=== PATIENT | male | born 1990 | race African-American/Black ===

== ENCOUNTER 2016-07-07 08:43 | Inpatient (IN) | payer OTHER ==
[2016-07-07] VITALS (13 sets, daily range): BP systolic 151; BP diastolic 58; PULSE 71–120; RESP 22; TEMP 98.1; O2SAT 99–100
[~2016-07-07 08:43] MED LIST: IBUP600 PO
[2016-07-07] MEDS ORDERED: MIDAZOLAM HCL 5 MG/ML VIAL (1 ML) ONE (08:45)
[2016-07-07] MEDS ORDERED: LORazepam 2 MG/ML VIAL ONE (08:45)
[2016-07-07] MEDS ORDERED: PROPOFOL 1000 MG/100 ML INJ 100 ML ONE ×3 (08:52→12:17)
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
[2016-07-07] MEDS ORDERED: IOHEXOL 350 MG/ML 10 ML VIAL (for RAD DIAG) IV ONE ×2 (09:26→21:37)
[2016-07-07 09:33] LABS: I-STAT POTASSIUM 3.6 MMOL/L (3.5-4.9); I-STAT SODIUM 147 MMOL/L (138-146)
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
[2016-07-07] MEDS ORDERED: MANNITOL INJ 50 ML ONE (09:47)
[2016-07-07] MEDS ORDERED: METOPROLOL TARTRATE 5 MG/5 ML VIAL ONE (09:48)
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
[2016-07-07 10:09] LABS: APTT (PATIENT) 24.6 SEC (24.3-30.1); PROTHROMBIN TIME - PATIENT 11.5 SEC (9.8-11.6)
[2016-07-07] MEDS ORDERED: ROCURONIUM INJ 50 MG/5 ML VIAL ONE (10:46)
[2016-07-07] MEDS ORDERED: CISATRACURIUM BESYLATE 20 MG/10 ML VIAL IVP ONE (11:00)
[2016-07-07 11:02] LABS: AMPHETAMINE, URINE NEG (NEG); BARBITURATES, URINE NEG (NEG); COCAINE, URINE NEG (NEG)
[2016-07-07] MEDS: SODIUM CHLOR 0.9% 1000 ML INJ 1,000 ML IV SCH ×2 (11:13→18:34)
[2016-07-07] MEDS ORDERED: MISCELLANEOUS NURSING INFORMATION XX SCH (11:15)
[2016-07-07] MEDS ORDERED: POTASSIUM PHOSPHATE INJ 30 MMOL in SODIUM CHLOR 0.9% 250 ML INJ 250 ML IV PRN (11:15)
[2016-07-07] MEDS ORDERED: POTASSIUM CHLOR 40 MEQ PREMIX 100 ML IV PRN ×3 (11:15→17:30)
[2016-07-07] MEDS ORDERED: SODIUM CHLORIDE 0.9% FLUSH 5 ML FLUSH IVF PRN (11:15)
[2016-07-07] MEDS ORDERED: PANTOPRAZOLE SODIUM 40 MG VIAL IVP SCH (11:15)
[2016-07-07] MEDS ORDERED: MAGNESIUM SULFATE INJ 4 GM in SODIUM CHLORIDE 0.9% INJ 92 ML IV PRN ×2 (11:15→17:30)
[2016-07-07] MEDS ORDERED: POTASSIUM CHLOR 20 MEQ PREMIX 100 ML IV PRN ×4 (11:15→17:30)
[2016-07-07] MEDS ORDERED: POTASSIUM CL 40 MEQ/30 ML LIQ UDC PO/TUBE PRN ×4 (11:15→17:30)
[2016-07-07] MEDS ORDERED: CHLORHEXIDINE GLUCONATE 2 % 1 PACK (2 CLOTHS) TOP PRN (11:15)
[2016-07-07] MEDS ORDERED: ONDANSETRON HCL 4 MG/2 ML VIAL IV PRN (11:15)
[2016-07-07] MEDS ORDERED: SODIUM PHOSPHATE INJ 30 MMOL in SODIUM CHLOR 0.9% 250 ML INJ 240 ML IV PRN (11:15)
[2016-07-07] MEDS ORDERED: MAGNESIUM SULFATE INJ 2 GM in SODIUM CHLORIDE 0.9% INJ 96 ML IV PRN ×2 (11:15→17:30)
[2016-07-07] MEDS ORDERED: MAGNESIUM OXIDE 400 MG TAB PO PRN ×2 (11:15→17:30)
[2016-07-07] MEDS ORDERED: POTASSIUM PHOSPHATE MONOBASIC 500 MG TAB PO PRN ×2 (11:15→17:30)
[2016-07-07] MEDS ORDERED: POTASSIUM PHOSPHATE MONOBASIC 500 MG TAB PO/TUBE PRN ×2 (11:15→17:30)
[2016-07-07] MEDS ORDERED: ENALAPRILAT 1.25 MG/ML VIAL IV PRN (11:15)
[2016-07-07] MEDS ORDERED: METOPROLOL TARTRATE 5 MG/5 ML VIAL IV PUSH ONE (11:30)
[2016-07-07] MEDS ORDERED: MIDAZOLAM 100 MG/NS 100 ML DRIP Premix IV SCH (11:30)
[2016-07-07] MEDS ORDERED: MANNITOL 12.5 GM/50 ML VIAL IV SCH (11:30)
[2016-07-07 11:36] LABS: BASOPHIL # 0.1 TH/MM3 (0-0.2); BASOPHIL % 0.8 % (0.0-2.0); EOSINOPHIL # 0.3 TH/MM3 (0-0.4); EOSINOPHIL % 3.2 % (0.0-4.0); HEMATOCRIT 49.5 % (39.0-51.0); LYMPH % 56.2 % (9.0-44.0); MEAN CELL VOLUME 93.5 FL (80.0-100.0); MEAN CORPUSCULAR HEMOGLOBIN 29.7 PG (27.0-34.0); MEAN CORPUSCULAR HGB CONC 31.7 % (32.0-36.0); MONO % 6.2 % (0.0-8.0); NEUT % 33.6 % (16.0-70.0); PLATELET COUNT 200 TH/MM3 (150-450); RED BLOOD COUNT 5.29 MIL/MM3 (4.50-5.90); RED CELL DISTRIBUTION WIDTH 13.6 % (11.6-17.2)
[2016-07-07 11:37] LABS: HEMO FLAGS AUTO DIFF
[2016-07-07 11:40] LABS: BANDS 1 % (0-6); EOSINOPHILS 5 % (0-4); METAMYELOCYTES 1 % (0-1); NEUTROPHIL # MANUAL DIFF 3.9 TH/MM3 (1.8-7.7); POLYS (SEG NEUTROPHILS) 41 % (16-70); WBC DIFF SAMPLE 100
[2016-07-07 11:41] LABS: PLATELET ESTIMATE SMEAR NORMAL (NORMAL); PLATELET MORPHOLOGY NORMAL (NORMAL); SCAN/DIFF FINAL DIFF MANUAL
[2016-07-07] MEDS ORDERED: SODIUM CHLORIDE 0.9% FLUSH 5 ML FLUSH IV FLUSH PRN (11:45)
[2016-07-07] MEDS ORDERED: cloNIDine HCL 0.3 MG/24 HR PATCH TD SCH (12:00)
[2016-07-07] MEDS: PANTOPRAZOLE SODIUM 40 MG VIAL IVP SCH ×2 (12:00→14:56)
[2016-07-07 12:12] LABS: BLOOD GAS BASE EXCESS -2.6 mmol/L (-2-2); BLOOD GAS CARBOXYHEMOGLOBIN 1.2 % (0-4); BLOOD GAS HCO3 22 mmol/L (22-26); BLOOD GAS METHEMOGLOBIN 0.9 % (0-2); BLOOD GAS O2 HGB SATURATION 97 % (90-100); BLOOD GAS OXYGEN CONTENT 22.7 Vol % (12.0-20.0); BLOOD GAS PCO2 43 mmHg (38-42); BLOOD GAS PO2 251 mmHg (61-120); BLOOD GAS TOTAL HGB 16.2 G/DL (12.0-16.0); TEMP CORR TO 98.6
[2016-07-07 12:13] LABS: CRITICAL VALUE NO; DRAW SITE RT RADIAL; FIO2 50 %; NUMBER OF ARTERIAL PUNCTURES 1; OXYGEN DEVICE VENTILATOR; STAT NO; ULNAR PULSE PRESENT; VENT SETTINGS PRVC/AC
--- NOTE | 2016-07-07 13:17 | PD.PROCEDR ---
Procedure Note Procedure The patient suffered a laceration to the RIGHT side of his scalp that required repair. It is 5 cm in length. After evaluating the area, the wound was copiously irrigated with normal saline. The area of the laceration was prepped with Betadine and sterilely draped. The laceration was infiltrated with 1% Lidocaine with Epinephrine. The wound was explored for foreign body, tendon injury, or neurovascular injury. The wound was then cleansed and irrigated a second time. Trying to maintain a sterile field and using a sterile staple gun, 3 chata were placed to approximate the wound edges. The patient tolerated the procedure well and no complications occurred. A sterile 4x4 dressing can be applied if it should drain. Recommendation: Daily wound checks and staple removal in 7-8 days. LACERATION LOCATION: RIGHT side of scalp LENGTH: 5 cm NUMBER OF CHATA: 3 Trupti Miles Jul 07, 2016 13:17
[2016-07-07] MEDS ORDERED: fentaNYL DRIP 250 ML IV SCH (13:30)
[2016-07-07] MEDS ORDERED: PROPOFOL 1000 MG/100 ML INJ 100 ML IV SCH (13:30)
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
[2016-07-07] MEDS: CISATRACURIUM INJ 100 MG in SODIUM CHLOR 0.9% 250 ML INJ 240 ML IV SCH ×4 (14:24→22:37)
[2016-07-07] MEDS: PROPOFOL 1000 MG/100 ML INJ 100 ML IV SCH ×5 (14:25→23:56)
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
[2016-07-07] MEDS: 3% SALINE INJ 500 ML IV SCH (16:15)
[2016-07-07] MEDS: RESP: ALBUTEROL 2.5 MG/IPRATROPIUM 0.5 MG NEB (SCH) INH ×2 (16:19→20:52)
[2016-07-07 16:51] LABS: CKMB 5.8 NG/ML (0.5-3.6)
[2016-07-07 16:55] LABS: BLOOD GAS VENOUS BASE EXCESS -1.5 mmol/L (-2-2); BLOOD GAS VENOUS O2 CONTENT 16.3 Vol % (9.0-17.0); BLOOD GAS VENOUS O2 HGB SAT 74 % (70-76); BLOOD GAS VENOUS PCO2 33 mmHg (44-48); BLOOD GAS VENOUS PO2 40 mmHg (35-40); BLOOD GAS VENOUS pH 7.44 (7.360-7.400); TEMP CORR TO 98.6
[2016-07-07 16:56] LABS: BLOOD GAS VENOUS HCO3 23 mmol/L (22-26); CRITICAL VALUE NO; FIO2 50 %; OXYGEN DEVICE VENTILATOR; STAT NO; VENT SETTINGS PRVC/AC
[2016-07-07 16:57] LABS: DRAW SITE CENTRAL LINE
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
[2016-07-07 17:31] LABS: BLOOD GAS BASE EXCESS -3.4 mmol/L (-2-2); BLOOD GAS CARBOXYHEMOGLOBIN 1.2 % (0-4); BLOOD GAS HCO3 19 mmol/L (22-26); BLOOD GAS O2 HGB SATURATION 96 % (90-100); BLOOD GAS OXYGEN CONTENT 20.8 Vol % (12.0-20.0); BLOOD GAS PCO2 23 mmHg (38-42); BLOOD GAS PO2 100 mmHg (61-120); BLOOD GAS TOTAL HGB 15.4 G/DL (12.0-16.0); CRITICAL VALUE YES; OXYGEN DEVICE VENTILATOR; TEMP CORR TO 98.6
[2016-07-07 17:32] LABS: FIO2 50 %; VENT SETTINGS PRVC/AC
[2016-07-07 17:33] LABS: DRAW SITE ART LINE; STAT NO
[2016-07-07] MEDS ORDERED: SODIUM CHLORIDE 23.4% INJ 240 MEQ in SYRINGE/BAG 1 EA IV ONE ×2 (18:00→23:00)
[2016-07-07] MEDS: MAGNESIUM SULFATE 1 GM PREMIX 100 ML IV SCH ×2 (18:33→20:31)
[2016-07-07] MEDS: levETIRAcetam 1000 MG INJ 100 ML IV SCH (18:33)
[2016-07-07] MEDS: hydrALAZINE HCL 20 MG/ML VIAL IV PRN (18:33)
[2016-07-07] MEDS: MIDAZOLAM 100 MG/ML INJ 100 ML IV SCH ×2 (18:34→20:32)
[2016-07-07] MEDS: fentaNYL DRIP 250 ML IV SCH ×2 (18:34→20:31)
[2016-07-07] MEDS ORDERED: EPINEPHrine HCL (1:10,000) 1 MG/10 ML SYRINGE ONE (18:59)
[2016-07-07] MEDS ORDERED: LIDOCAINE HCL 2% 100 MG/5 ML SYRINGE ONE (18:59)
[2016-07-07] MEDS ORDERED: ATROPINE SULFATE 1 MG/10 ML SYRINGE ONE (18:59)
[2016-07-07] MEDS ORDERED: NOREPINEPHRINE 4 MG/4 ML AMP ONE (19:45)
[2016-07-07] MEDS ORDERED: CHLORHEXIDINE 0.12% (ORAL KIT) 15 ML CUP MT SCH (20:00)
[2016-07-07] MEDS: MAGNESIUM HYDROXIDE SUSP 30 ML CUP PO SCH (20:31)
[2016-07-07] MEDS: CHLORHEXIDINE 0.12% (ORAL KIT) 15 ML CUP MT SCH (20:31)
[2016-07-07] MEDS: SODIUM CHLORIDE 0.9% FLUSH 5 ML FLUSH IV FLUSH SCH (20:32)
[2016-07-07] MEDS ORDERED: DOCUSATE SODIUM 100 MG CAP PO SCH (21:00)
[2016-07-07 21:41] LABS: CKMB 13.8 NG/ML (0.5-3.6)
--- NOTE | 2016-07-07 21:48 | RADRPT ---
EXAM DATE/TIME: 07/07/2016 21:18 [facility] COMPARISON: No previous studies available for comparison. INDICATIONS : Evaluate known intracranial hemorrhage; fluctuating intracranial pressure. IV CONTRAST: 76 cc Omnipaque 350 (iohexol) IV ; Cumulative dose for multiple exams. RADIATION DOSE: 28.90 CTDIvol (mGy) ; Combined studies MEDICAL HISTORY : Cardiovascular disease. Hypertension. Intracranial hemorrhage. SURGICAL HISTORY : None. ENCOUNTER: Initial ACUITY: 1 day PAIN SCALE: Non-responsive LOCATION: cranial TECHNIQUE: Volumetric scanning was performed using a multi-row detector CT scanner. The data was post processed with a variety of visualization algorithms including full volume maximum intensity projection, multi -planar sliding thin slab reformation, curved planar reformation, and surface rendering techniques. Using automated exposure control and adjustment of the mA and/or kV according to patient size, radiat ion dose was kept as low as reasonably achievable to obtain optimal diagnostic quality images. FINDINGS: There is excellent visualization of the major intracranial arteries out to the second-order branch ve ssels. There is no evidence for aneurysm, vessel truncation or stenosis, and no evidence for vascula r malformation. CONCLUSION: Negative CTA of the head. Significant areas of spasm are seen. Delroy Grimaldo MD on July 07, 2016 at 21:45 Board Certified Radiologist. This report was verified electronically.
--- NOTE | 2016-07-07 21:51 | RADRPT ---
EXAM DATE/TIME: 07/07/2016 21:18 [facility] COMPARISON: CT BRAIN W/O CONTRAST, July 07, 2016, 9:11. INDICATIONS : Evaluate known intracranial hemorrhage; fluctuating intracranial pressure. RADIATION DOSE: 50.67 CTDIvol (mGy) MEDICAL HISTORY : Hypertension. Cardiovascular disease ICH SURGICAL HISTORY : None. ENCOUNTER: Initial ACUITY: 1 day PAIN SCALE: Non-responsive LOCATION: Cranial TECHNIQUE: Multiple contiguous axial images were obtained of the head. Using automated exposure control and adjustment of the mA and/or kV according to patient size, radiation dose was kept as low as reasonably achievable to obtain optimal diagnostic quality images. FINDINGS: There is a pressure monitor seen in place from the right frontal approach. The re is a focal area of parenchymal hemorrhage seen at the left superior medial frontal lobe. This was seen pr eviously. There is a thin subdural collection seen posteriorly at the left parietal, posterior tempor al and occipital regions measuring 3 mm. The ventricles and cortical sulci appear patent. The basal cisterns are open. There is some mucosal disease seen at the left maxillary sinus. CONCLUSION: 1. Good placement of a pressure monitor from the right frontal approach. 2. Persistent small 3 mm subdural collection seen at the posterior left cerebral hemisphere over the left parietal, posterior temporal and occipital regions. 3. The ventricles, cortical sulci and basal cisterns are open. 4. Small focal hemorrhage seen in the superior left frontal parietal region. Delroy Grimaldo MD on July 07, 2016 at 21:41 Board Certified Radiologist. This report was verified electronically.
--- NOTE | 2016-07-07 22:05 | RADRPT ---
EXAM DATE/TIME: 07/07/2016 21:18 [facility] COMPARISON: No previous studies available for comparison. INDICATIONS : Evaluate known intracranial hemorrhage; fluctuating intracranial pressure. IV CONTRAST: 76 cc Omnipaque 350 (iohexol) IV ; Cumulative dose for multiple exams. RADIATION DOSE: 28.90 CTDIvol (mGy) ; Combined studies MEDICAL HISTORY : Cardiovascular disease. Hypertension. Intracranial hemorrhage. SURGICAL HISTORY : None. ENCOUNTER: Initial ACUITY: 1 day PAIN SCALE: Non-responsive LOCATION: neck TECHNIQUE: Volumetric scanning was performed using a multirow detector CT scanner. The data was post processed with a variety of visualization algorithms including full-volume maximum intensity projection, multip lanar sliding thin-slab reformation, curved-planar reformation, and surface-rendering techniques. Us ing automated exposure control and adjustment of the mA and/or kV according to patient size, radiatio n dose was kept as low as reasonably achievable to obtain optimal diagnostic quality images. FINDINGS: AORTIC ARCH: There is a three-vessel origin of the great vessels from the aorta. No evidence of ostial narrowing. RIGHT CAROTID: The common carotid artery is intact. The carotid bulb has a normal configuration without ulceration o r narrowing. The internal carotid artery lumen is smooth without stenosis. The external carotid evie ry is intact. LEFT CAROTID: The common carotid artery is intact. The carotid bulb has a normal configuration without ulceration or narrowing. The internal carotid artery lumen is smooth without stenosis. The external carotid ar john is intact. VERTEBRALS: The vertebral arteries have a symmetric diameter. No stenotic lesions are seen. CONCLUSION: Normal examination. Delroy Grimaldo MD on July 07, 2016 at 22:02 Board Certified Radiologist. This report was verified electronically.
[2016-07-07] MEDS: MANNITOL 12.5 GM/50 ML VIAL IV SCH (22:15)
[2016-07-07] MEDS: NOREPINEPHRINE INJ 4 MG in SODIUM CHLOR 0.9% 250 ML INJ 250 ML IV SCH (22:20)
--- NOTE | 2016-07-07 22:42 | HHI.PR ---
Subjective Remarks Evaluated patient around 6:15pm for persistently elevated ICP despite maximal therapy. patient with small subdural hemorrhage on initial AM CT scan. ICP 20s. Also, patient with high cervical TP fracture, could have component of ischemia from vert dissection/compromise. On my exam, patient sedated, paralyzed. ICP 20s-30s. HOB elevated and etco2 appropriately low. patient was also moderately hypotensive with sbp 100s on my exam, giving him CPP of only 45. Taken urgently for CT head/CTA head and neck. CT head with open cisterns and no interval change. CTA without vert flow voids/dissection. Did note significant vasospasm. Repeat labs with Na downtrended to 142 and Osms 301. CK uptrended to 3000. trop uptrending, but MB ratio normal, likely secondary to acute rhabdo Active Problems: Severe Traumatic Brain Injury Severely Elevated ICP Acute Rhabdomyolysis Hypotension Plan: -- mannitol 12.5gm iv q6h, hold for Osm > 320 -- NaCl 23.5% 50mL iv x 1 -- increase total volume resuscitation for renal protection from repeat contrast and also to help with renal filtering for rhabdomyolysis -- NaCl mivf to 100cc/hr -- increase 3% NaCl to 50cc/hr. -- CT head and CTA head and neck as above. -- continue sedation -- start norepinephrine to increase CPP -- continue nimbex infusion for now, though consider weaning this in the AM to get adequate neuro exam This patient remains critically ill with one or more organ systems which are or may become a threat to life. This addendum represents an additional 31 minutes in excess of any time previously documented in the care and management of this patient. This time is discontinuous, exclusive of procedures, and includes, but is not limited to, evaluation of the patient, review of the medical record, discussions with family, consultants, nursing staff, or respiratory therapy, and documentation in the medical record. Miah Dye MD Jul 07, 2016 22:42
[2016-07-08] VITALS (17 sets, daily range): BP systolic 92–144; BP diastolic 52–96; PULSE 38–68; RESP 14–26; TEMP 94.6–99.7; O2SAT 100
[2016-07-08] MEDS: PROPOFOL 1000 MG/100 ML INJ 100 ML IV SCH ×8 (01:58→23:26)
[2016-07-08 02:37] LABS: CKMB 12.4 NG/ML (0.5-3.6)
[2016-07-08] MEDS ORDERED: SODIUM CHLOR 0.9% 1000 ML INJ 1,000 ML IV ONE (03:15)
[2016-07-08] MEDS: RESP: ALBUTEROL 2.5 MG/IPRATROPIUM 0.5 MG NEB (SCH) INH ×4 (03:45→21:38)
[2016-07-08] MEDS: CHLORHEXIDINE GLUCONATE 2 % 1 PACK (2 CLOTHS) TOP SCH (04:00)
[2016-07-08] MEDS: MANNITOL 12.5 GM/50 ML VIAL IV SCH (04:15)
[2016-07-08] MEDS: levETIRAcetam 1000 MG INJ 100 ML IV SCH ×2 (04:45→17:25)
--- NOTE | 2016-07-08 05:00 | RADRPT ---
EXAM DATE/TIME: 07/08/2016 04:09 [facility] COMPARISON: CHEST SINGLE AP, July 07, 2016, 8:39. INDICATIONS : Shortness of breath. MEDICAL HISTORY : Hypertension. Cardiovascular disease. SURGICAL HISTORY : None. ENCOUNTER: Subsequent ACUITY: 2 days PAIN SCORE: Non-responsive. LOCATION: Bilateral chest FINDINGS: The cardiac silhouette is enlarged in transverse diameter. Support lines and tubes are in satisfactor y position. There is left lower lobe atelectasis versus pneumonia. The right lung is free of acute pa renchymal opacity. CONCLUSION: 1. Left lower lobe atelectasis versus pneumonia. The findings are similar to the prior exam. Chris Negrete MD on July 08, 2016 at 4:57 Board Certified Radiologist. This report was verified electronically.
[2016-07-08 05:06] LABS: BLOOD GAS BASE EXCESS -7.9 mmol/L (-2-2); BLOOD GAS CARBOXYHEMOGLOBIN 0.7 % (0-4); BLOOD GAS HCO3 17 mmol/L (22-26); BLOOD GAS O2 HGB SATURATION 98 % (90-100); BLOOD GAS PCO2 31 mmHg (38-42); BLOOD GAS PO2 253 mmHg (61-120); BLOOD GAS TOTAL HGB 12.7 G/DL (12.0-16.0); TEMP CORR TO 98.6
[2016-07-08 05:07] LABS: CRITICAL VALUE NO; OXYGEN DEVICE VENTILATOR
[2016-07-08 05:08] LABS: DRAW SITE ART LINE; FIO2 50 %; STAT NO; VENT SETTINGS SEE COMMENTS
[2016-07-08] MEDS: 3% SALINE INJ 500 ML IV SCH ×2 (05:20→15:33)
[2016-07-08 05:36] LABS: AUTOMATED NEUTROPHIL # 8.5 TH/MM3 (1.8-7.7); BASOPHIL % 0.3 % (0.0-2.0); EOSINOPHIL % 0.3 % (0.0-4.0); HEMATOCRIT 38.3 % (39.0-51.0); HEMO FLAGS DIFF FINAL; LYMPH % 16.1 % (9.0-44.0); LYMPHOCYTE # 1.7 TH/MM3 (1.0-4.8); MEAN CORPUSCULAR HEMOGLOBIN 29.7 PG (27.0-34.0); NEUT % 78.3 % (16.0-70.0); PLATELET COUNT 176 TH/MM3 (150-450); RED BLOOD COUNT 4.25 MIL/MM3 (4.50-5.90); RED CELL DISTRIBUTION WIDTH 14.1 % (11.6-17.2); WHITE BLOOD COUNT 10.8 TH/MM3 (4.0-11.0)
[2016-07-08 05:50] LABS: PROTHROMBIN TIME - PATIENT 11.6 SEC (9.8-11.6)
[2016-07-08 06:06] LABS: BICARBONATE 18.5 MEQ/L (21.0-32.0); POTASSIUM 4.2 MEQ/L (3.5-5.1)
[2016-07-08 06:43] LABS: CALCIUM-PROTEIN CORRECTED 7.9 MG/DL (8.5-10.1)
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
[2016-07-08] MEDS: CHLORHEXIDINE 0.12% (ORAL KIT) 15 ML CUP MT SCH ×2 (08:00→19:48)
[2016-07-08] MEDS: SODIUM CHLORIDE 0.9% FLUSH 5 ML FLUSH IV FLUSH SCH ×2 (09:00→19:48)
[2016-07-08] MEDS: NOREPINEPHRINE INJ 4 MG in SODIUM CHLOR 0.9% 250 ML INJ 250 ML IV SCH ×4 (09:45→23:25)
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
[2016-07-08] MEDS ORDERED: DIVALPROEX SODIUM SPRINKLES 125 MG CAP PO SCH (11:00)
[2016-07-08] MEDS: DOCUSATE SODIUM 100 MG/10 ML UDC PO SCH ×2 (11:42→19:47)
[2016-07-08] MEDS: PANTOPRAZOLE SODIUM 40 MG VIAL IVP SCH (11:43)
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
[2016-07-08] MEDS ORDERED: LORazepam 2 MG/ML VIAL ONE (14:28)
[2016-07-08] MEDS ORDERED: FOSPHENYTOIN INJ 1,500 MGPE in SODIUM CHLORIDE 0.9% INJ 100 ML IV ONE (15:00)
[2016-07-08 15:44] LABS: ALKALINE PHOSPHATASE 59 U/L (45-117); ALT (GPT) 47 U/L (12-78); TOTAL BILIRUBIN ADULT 0.6 MG/DL (0.2-1.0)
[2016-07-08 15:46] LABS: ANION GAP 9 MEQ/L (5-15); AST (GOT) 65 U/L (15-37); BICARBONATE 20.3 MEQ/L (21.0-32.0); BLOOD UREA NITROGEN 10 MG/DL (7-18); CHLORIDE 123 MEQ/L (98-107); GLOMERULAR FILTRATION RATE 69 ML/MIN (>89); POTASSIUM 4.5 MEQ/L (3.5-5.1); SODIUM (NA) 152 MEQ/L (136-145)
--- NOTE | 2016-07-08 16:29 | OTSOAPIP ---
TIME SESSION COMPLETED: AM TREATMENT TIME: 0 MINS. CHART REVIEWED. ATTEMPTED TO SEE FOR OT EVALUATION, HOWEVER ON HOLD. WILL FOLLOW NEXT DAY. Therapist: MACY PEDRAZA OT/Stacy Signature on file
[2016-07-08] MEDS ORDERED: LORazepam 2 MG/ML VIAL IV PUSH PRN (17:15)
[2016-07-08] MEDS: MIDAZOLAM 100 MG/ML INJ 100 ML IV SCH (17:25)
[2016-07-08] MEDS: fentaNYL DRIP 250 ML IV SCH (17:25)
--- NOTE | 2016-07-08 17:26 | MG ---
cc: SHAYNA BAE Lab No: Date: 07/08/2016 Age: Sex: M Race: TEST NUMBER [id number] TECHNIQUE 17 channel EEG. DESCRIPTION Background rhythm is generally slow in the delta frequency at 3-4 Hz. Amplitude is 10-20 microvolts. There is some muscle artifact. I do not see any lateralizing features. No epileptiform discharges are present. INTERPRETATION Abnormal study consistent with a severe encephalopathy. MD BETSY Covarrubias/WADE /5:12 PM /5:21 PM
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
[2016-07-08] MEDS ORDERED: VALPROATE INJ 1,000 MG in SODIUM CHLORIDE 0.9% INJ 100 ML IV ONE (19:00)
[2016-07-08] MEDS: MAGNESIUM HYDROXIDE SUSP 30 ML CUP PO SCH (19:48)
[2016-07-08] MEDS: SODIUM CHLOR 0.9% 1000 ML INJ 1,000 ML IV SCH (19:49)
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
[2016-07-08] MEDS: FOSPHENYTOIN SODIUM 100 MG PE/2 ML VIAL IV SCH (22:41)
--- NOTE | 2016-07-08 23:00 | EKG ---
Date Performed: 07/07/2016 Time Performed: 17:35:03 PTAGE: 89 years EKG: Sinus rhythm NORMAL ECG INTERPRETATION BASED ON A DEFAULT AGE OF 42 YEARS PREVIOUS TRACING : 07/07/2016 11.54 DOCTOR: Shailesh Lemus Interpretating Date/Time 07/08/2016 22:57:18
--- NOTE | 2016-07-08 23:12 | EKG ---
Date Performed: 07/07/2016 Time Performed: 11:54:02 PTAGE: 89 years EKG: Sinus bradycardia with PAC(s). Normal ECG except for rate NO PREVIOUS TRACING DOCTOR: Shailesh Lemus Interpretating Date/Time 07/08/2016 23:06:55
[2016-07-09] VITALS (13 sets, daily range): BP systolic 107–150; BP diastolic 57–75; PULSE 56–90; RESP 17–20; TEMP 97.8–99.3; O2SAT 98–100
[2016-07-09] MEDS: fentaNYL DRIP 250 ML IV SCH ×2 (01:17→13:41)
[2016-07-09] MEDS: MIDAZOLAM 100 MG/ML INJ 100 ML IV SCH ×3 (01:17→21:33)
[2016-07-09] MEDS: PROPOFOL 1000 MG/100 ML INJ 100 ML IV SCH ×4 (01:36→21:13)
[2016-07-09] MEDS: 3% SALINE INJ 500 ML IV SCH ×2 (02:00→13:41)
[2016-07-09] MEDS: RESP: ALBUTEROL 2.5 MG/IPRATROPIUM 0.5 MG NEB (SCH) INH ×3 (03:32→20:32)
[2016-07-09] MEDS: CHLORHEXIDINE GLUCONATE 2 % 1 PACK (2 CLOTHS) TOP SCH (03:36)
[2016-07-09 04:17] LABS: HEMATOCRIT 36.9 % (39.0-51.0); MEAN CORPUSCULAR HEMOGLOBIN 29.7 PG (27.0-34.0); MEAN CORPUSCULAR HGB CONC 33.1 % (32.0-36.0); PLATELET COUNT 167 TH/MM3 (150-450); RED CELL DISTRIBUTION WIDTH 13.9 % (11.6-17.2); REVIEW FLAG FINAL; WHITE BLOOD COUNT 16.5 TH/MM3 (4.0-11.0)
[2016-07-09] MEDS ORDERED: ATROPINE SULFATE 1 MG/10 ML SYRINGE ONE (04:26)
[2016-07-09] MEDS ORDERED: EPINEPHrine HCL (1:10,000) 1 MG/10 ML SYRINGE ONE (04:26)
--- NOTE | 2016-07-09 05:12 | RADRPT ---
EXAM DATE/TIME: 07/09/2016 04:38 [facility] COMPARISON: CT BRAIN W/O CONTRAST, July 07, 2016, 9:11. CT BRAIN W/O CONTRAST, July 07, 2016, 21:18. INDICATIONS : Follow up intracranial injury. RADIATION DOSE: 66.28 CTDIvol (mGy) MEDICAL HISTORY : Non-responsive. SURGICAL HISTORY : Non-responsive. ENCOUNTER: Subsequent ACUITY: 3 days PAIN SCALE: Non-responsive LOCATION: cranial TECHNIQUE: Multiple contiguous axial images were obtained of the head. Using automated exposure control and adj ustment of the mA and/or kV according to patient size, radiation dose was kept as low as reasonably a chievable to obtain optimal diagnostic quality images. FINDINGS: Intracranial pressure monitor is present in the right frontal region. 5 mm contusion is present in th e left frontal lobe unchanged. No acute intracranial hemorrhage is identified. The left occipital lob e subdural hematoma is only slightly visible. There is effacement of the sulci in the supratentorial brain bilaterally characteristic of cerebral edema. There no signs of herniation. Posterior fossa str uctures are unremarkable. CONCLUSION: 1. Findings of stable mild cerebral edema and stable left frontal contusion 2. No acute intracranial hemorrhage is identified Chris Negrete MD on July 09, 2016 at 5:08 Board Certified Radiologist. This report was verified electronically.
[2016-07-09] MEDS: levETIRAcetam 1000 MG INJ 100 ML IV SCH ×2 (05:39→18:27)
--- NOTE | 2016-07-09 06:00 | RADRPT ---
EXAM DATE/TIME: 07/09/2016 04:21 [facility] COMPARISON: CHEST SINGLE AP, July 08, 2016, 4:09. INDICATIONS : Short of breath. MEDICAL HISTORY : None. SURGICAL HISTORY : None. ENCOUNTER: Initial ACUITY: 3 days PAIN SCORE: Non-responsive. LOCATION: Bilateral chest FINDINGS: The cardiac silhouette is enlarged in transverse diameter. Support lines and tubes are in satisfactor y position. The right subclavian vein catheter has a loop in its tip. There has been no significant c hange when compared to the prior exam. There is left lower lobe atelectasis versus pneumonia. A small left sided effusion is present. CONCLUSION: 1. Left lower lobe atelectasis versus pneumonia. Left pleural effusion 2. The findings have worsened when compared with the prior examination. Chris Negrete MD on July 09, 2016 at 5:58 Board Certified Radiologist. This report was verified electronically.
[2016-07-09 06:17] LABS: BLOOD GAS BASE EXCESS -6.7 mmol/L (-2-2); BLOOD GAS HCO3 17 mmol/L (22-26); BLOOD GAS O2 HGB SATURATION 96 % (90-100); BLOOD GAS OXYGEN CONTENT 16.3 Vol % (12.0-20.0); BLOOD GAS PCO2 28 mmHg (38-42); BLOOD GAS PO2 117 mmHg (61-120); BLOOD GAS TOTAL HGB 11.9 G/DL (12.0-16.0); CRITICAL VALUE NO; OXYGEN DEVICE VENTILATOR; TEMP CORR TO 98.6
[2016-07-09 06:19] LABS: DRAW SITE ART LINE; FIO2 40 %; STAT NO; VENT SETTINGS PRVC/AC
[2016-07-09] MEDS: CHLORHEXIDINE 0.12% (ORAL KIT) 15 ML CUP MT SCH ×2 (08:00→21:11)
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
[2016-07-09] MEDS ORDERED: PHENYTOIN INJ 100 MG/2 ML VIAL IV SCH (09:00)
[2016-07-09] MEDS: DOCUSATE SODIUM 100 MG/10 ML UDC PO SCH ×2 (09:00→21:12)
[2016-07-09] MEDS: SODIUM CHLORIDE 0.9% FLUSH 5 ML FLUSH IV FLUSH SCH ×2 (09:00→21:11)
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
[2016-07-09] MEDS ORDERED: ALBUMIN HUMAN 5% 25 GM/500 ML BOTTLE IV ONE (10:00)
[2016-07-09] MEDS: FOSPHENYTOIN SODIUM 100 MG PE/2 ML VIAL IV SCH ×3 (10:05→21:12)
[2016-07-09 10:08] LABS: ALKALINE PHOSPHATASE 56 U/L (45-117); ALT (GPT) 37 U/L (12-78); ANION GAP 11 MEQ/L (5-15); AST (GOT) 48 U/L (15-37); BICARBONATE 16.5 MEQ/L (21.0-32.0); BLOOD UREA NITROGEN 8 MG/DL (7-18); CHLORIDE 123 MEQ/L (98-107); GLOMERULAR FILTRATION RATE 74 ML/MIN (>89); POTASSIUM 4.1 MEQ/L (3.5-5.1); SODIUM (NA) 150 MEQ/L (136-145); TOTAL BILIRUBIN ADULT 0.5 MG/DL (0.2-1.0)
[2016-07-09] MEDS: VALPROATE IV SCH ×4 (10:23→21:10)
[2016-07-09] MEDS: NS IV SCH ×4 (10:23→21:10)
[2016-07-09] MEDS: PANTOPRAZOLE SODIUM 40 MG VIAL IVP SCH (12:00)
--- NOTE | 2016-07-09 12:13 | HHI.PR ---
Neuropsych Emotional Emotional: UnabletoAssess: Emotional, Anxious/Fearful, Depressed/Sad, Hostile/ Resentful, Irritable/Angry/Frustrate, Labile, Constricted/Blunted Behavior Behavior: Unable to Asses: Behavior, Coping/Acceptance, Cooperative w/ Treatment, Motivation, Frustration Tolerance/[place], Impulsive/Agitated, Suicidal/ Homicidal Risk Cognitive Cognitive: Unable to Asses: Cognitive, Attention/Concentration, Confused/ Orientation, Insight/Awareness, Judgement/Problem-Solving, Memory Psychosocial Psychosocial: Moderate: Psychosocial, Family/Other Adjustment, Unable to Asses : Realistic Expectation, Self-Esteem/Confidence Progress Notes/Response to Tx Contents of Sessions: Level of Consciousness Time with Patient: 30 minutes Premorbid psychological status Premorbid Cognitive, Emotional and Behavioral Status: Tenuous. It is unclear this patient's educational, occupational or psychiatric histories. He was positive for THC on admit. Behavioral Reactions of Patient and Family/Support System: Unable to Assess. There are many individuals present in his hospital room, to such an extent that limitations on visitors are necessary. During my visits there were no decision makers or persons available to obtain a clear history. Emotional/Behavioral Status of Patient and Family/Support System: Unable to Assess. Pertinent issues, if appropriate to this patients clinical care, are described in detail above. Maximizing acute care outcome It is recommended that the patient be monitored for emergent behavioral impulsivity as the medical condition evolves. This patients neuropathological challenges may limit their rehabilitation potential going forward, and these challenges will require specialized therapeutic skills to maximize outcome. Anticipated Problems Ongoing areas of concern will include behavioral impulsivity, lack of insight and judgment, which is expected to improve with time and treatment. Presently , the patient is sedated and intubated. Treatment Plan This clinician will continue to follow with you throughout the course of this patients rehabilitation treatment, and I will be available to meet with the patients family/support system to facilitate their understanding and the ongoing care of their family member. The goals of neuropsychological intervention shall be both educational and supportive to the family/support system as is deemed clinically appropriate. [facility] Level: I:No response-total assistance Diagnosis: (1) Major neurocognitive disorder as late effect of traumatic brain injury with behavioral disturbance Status: Acute Progress Note Narrative Ongoing follow-up of patient. Recent developments included onset of generalized tonic-clonic seizure activity 2T his brain injury, for which he is now being treated pharmacologically. From a neurobehavioral perspective, no significant change compared to yesterday. I will continue to follow with you. Emil Dang PhD Jul 09, 2016 12:12 pm
--- NOTE | 2016-07-09 15:36 | MG ---
cc: SHAYNA BAE M.D. Lab No: [id number] Date: 07/09/2016 Age: Sex: M Race: TECHNIQUE: 17 channel EEG. DESCRIPTION: The patient's sedation was turned off prior to the EEG. The background rhythm is generally slow in the delta frequency with some theta rhythm mixed in ranging from 3 Hz to 6 Hz. The majority however appears to be delta. There are no lateralizing features and no epileptiform features present. INTERPRETATION: Abnormal study consistent with a severe encephalopathic state. MD BETSY Covarrubias/SONJA /1:41 PM /3:33 PM
--- NOTE | 2016-07-09 16:19 | PD.PROCEDR ---
Procedure Note Procedure DX: TBI, trauma, resp failure (J96.01) OP: Insertion Left Radial Artery Line (14353) Procedure: Left wrist/hand Ilya test normal. Left wrist supinated, prepped and draped. Left radial artery cannulated with 20 gauge needle and cannula advanced. Good waveform observed. Dressing applied. Ciculation to left hand intact after procedure. Eamon Collins MD Jul 09, 2016 16:19
[2016-07-09 16:56] LABS: ALKALINE PHOSPHATASE 55 U/L (45-117); ALT (GPT) 30 U/L (12-78); ANION GAP 10 MEQ/L (5-15); AST (GOT) 37 U/L (15-37); BLOOD UREA NITROGEN 7 MG/DL (7-18); CHLORIDE 121 MEQ/L (98-107); GLOMERULAR FILTRATION RATE 77 ML/MIN (>89); POTASSIUM 3.8 MEQ/L (3.5-5.1); SODIUM (NA) 151 MEQ/L (136-145); TOTAL BILIRUBIN ADULT 0.9 MG/DL (0.2-1.0)
[2016-07-09] MEDS: LACTULOSE SYRUP 20 GM/30 ML CUP PO SCH (17:30)
[2016-07-09 17:49] LABS: BLOOD GAS BASE EXCESS -6.5 mmol/L (-2-2); BLOOD GAS CARBOXYHEMOGLOBIN 1.3 % (0-4); BLOOD GAS HCO3 18 mmol/L (22-26); BLOOD GAS O2 HGB SATURATION 97 % (90-100); BLOOD GAS PCO2 29 mmHg (38-42); BLOOD GAS PO2 129 mmHg (61-120); BLOOD GAS TOTAL HGB 11.6 G/DL (12.0-16.0); CRITICAL VALUE NO; OXYGEN DEVICE VENTILATOR; TEMP CORR TO 98.6
[2016-07-09 17:50] LABS: DRAW SITE ART LINE; FIO2 40 %; STAT YES
--- NOTE | 2016-07-09 17:55 | OTSOAPIP ---
TIME SESSION COMPLETED: 5 & 4:00 TREATMENT TIME: 0 MINS. CHART REVIEWED. ATTEMPTED TO SEE FOR OT AND FIRST TIME PT HAVING EEG DONE. RETURN IN AFTERNOON AND NURSE ASKED TO DEFER TO AVOID STIMULATION. WILL FOLLOW NEXT DAY. Therapist: MACY PEDRAZA OT/L Signature on file
--- NOTE | 2016-07-09 17:58 | HHI.PR ---
Review/Management Daily Summary heavy sedation still needed no seizure today eeg diffuse slowing, repeat pending will monitor Subjective Subjective Comments No new acute events reported no further seizures Active Medications Current Medications Medications (Trade) Dose Ordered Sig/Romy Route Start Time Stop Time Status Last Admin (NS 1000 ml Inj) 1,000 ml @ 40 mls/hr Q24H IV 07/07/16 11:13 07/07/16 18:34 (Tylenol) 650 mg Q6H PRN PO 07/07/16 11:15 (Zofran Inj) 4 mg Q6H PRN IV 07/07/16 11:15 (Milk Of Magnesia Liq) 30 ml HS PO 07/07/16 21:00 07/08/16 19:48 Miscellaneous Information 1 Q361D XX 07/07/16 11:15 07/07/16 11:15 (Chlorhexidine 2% Cloth) 3 pack Taper DAILY@04 TOP 07/08/16 04:00 07/04/17 03:59 07/09/16 03:36 (Chlorhexidine 2% Cloth) 3 pack UNSCH PRN TOP 07/07/16 11:15 (K-Phos) 2,000 mg UNSCH PRN PO/TUBE 07/07/16 11:15 (NS Flush) 2 ml UNSCH PRN IV FLUSH 07/07/16 11:45 (NS Flush) 2 ml BID IV FLUSH 07/07/16 21:00 07/09/16 09:00 (Protonix Inj) 40 mg Q24H IVP 07/07/16 12:00 07/09/16 12:00 Chlorhexidine Gluconate 15 ml 15 ml BID@08,20 MT 07/07/16 20:00 07/09/16 08:00 (Diprivan 1000 Mg/100ml Inj) 100 ml @ 0 mls/hr TITRATE IV 07/07/16 13:45 07/09/16 13:41 Hydralazine HCl 10 mg 10 mg Q1H PRN IV 07/07/16 14:00 07/07/16 18:33 Sodium Chloride 500 ml @ 40 mls/hr Q24H IV 07/07/16 16:15 07/09/16 13:41 Fentanyl Citrate 250 ml @ 0 mls/hr TITRATE IV 07/07/16 17:30 07/09/16 13:41 (Versed Inj) 100 ml @ 0 mls/hr TITRATE IV 07/07/16 17:30 07/09/16 05:39 Fentanyl Citrate 100 mcg 100 mcg Q1H PRN IV PUSH 07/07/16 17:30 07/08/16 05:01 Levetriacetam 100 ml @ 400 mls/hr Q12H IV 07/07/16 18:00 07/09/16 05:39 Potassium Chloride 100 ml @ 50 mls/hr Q2H PRN IV 07/07/16 17:30 (KCl 20 Meq Premix Inj) 100 ml @ 50 mls/hr Q2H PRN IV 07/07/16 17:30 Potassium Chloride 40 meq 40 meq UNSCH PRN PO/TUBE 07/07/16 17:30 Potassium Chloride 100 ml @ 25 mls/hr UNSCH PRN IV 07/07/16 17:30 Potassium Chloride 100 ml @ 50 mls/hr Q2H PRN IV 07/07/16 17:30 (Magnesium Sulfate Inj/NS Inj) 100 ml @ 50 mls/hr UNSCH PRN IV 07/07/16 17:30 Magnesium Oxide 800 mg 800 mg UNSCH PRN PO 07/07/16 17:30 (Magnesium Sulfate Inj/NS Inj) 100 ml @ 50 mls/hr UNSCH PRN IV 07/07/16 17:30 Potassium Phosphate 2000 mg 2,000 mg Q4H PRN PO 07/07/16 17:30 (Sodium Phosphate Inj/NS 250 ml Inj) 250 ml @ 42 mls/hr UNSCH PRN IV 07/07/16 17:30 (KCl 40 Meq/30 ml Liq) 40 meq UNSCH PRN PO/TUBE 07/07/16 17:30 Potassium Phosphate 2000 mg 2,000 mg UNSCH PRN PO/TUBE 07/07/16 17:30 Potassium Phosphate 30 mmol/ Sodium Chloride 260 ml @ 42 mls/hr UNSCH PRN IV 07/07/16 17:30 (Levophed Inj/NS 250 ml Inj) 254 ml @ 0 mls/hr TITRATE IV 07/07/16 20:15 07/08/16 23:25 (Colace Liq) 100 mg Q12HR PO 07/08/16 11:00 07/09/16 09:00 (Cerebyx Inj) 100 mgpe Q8HR IV 07/08/16 22:00 07/09/16 14:30 Lorazepam 1 mg 1 mg Q15M PRN IV PUSH 07/08/16 17:15 (Depacon Inj/NS Inj) 105 ml @ 105 mls/hr Q12H IV 07/09/16 08:00 07/09/16 10:23 (Lactulose Liq) 30 ml DAILY PO 07/09/16 17:30 07/09/16 17:30 Allergies Allergies Coded Allergies No Known Allergies (Unverified07/07/16) Exam I&O / VS 07/08/16 07/08/16 07/09/16 15:00 23:00 07:00 Intake Total 1980 ml 2033 ml 1627 ml Output Total 675 ml 850 ml 350 ml Balance 1305 ml 1183 ml 1277 ml Intake IV Total 1731 ml 2033 ml 1627 ml Lipid 249 ml Output Urine Total 475 ml 750 ml 350 ml Gastric Drainage Total 200 ml 100 ml 0 ml # Bowel Movements 0 0 0 Vital Signs Date Time Temp Pulse Resp B/P Pulse Ox O2 Delivery O2 Flow Rate FiO2 07/09/16 16:18 100 35 07/09/16 10:00 100 40 07/09/16 08:00 40 07/09/16 08:00 98.2 60 18 148/68 100 07/09/16 04:35 100 100 07/09/16 04:10 100 40 07/09/16 04:00 99.3 90 20 123/75 100 132/60 07/09/16 04:00 40 07/09/16 01:19 100 40 07/09/16 01:19 100 40 07/09/16 00:00 40 07/09/16 00:00 99.3 67 20 107/57 100 128/58 07/08/16 21:39 100 40 07/08/16 21:39 100 40 07/08/16 20:00 40 07/08/16 20:00 99.7 59 26 144/76 100 142/64 07/08/16 18:00 64 Respiratory: Lungs CTA, Non-labored respirations, BS equal Cardiology: Normal rate, Regular Rhythm Musculoskeletal: ROM (Grossly within functional limits) Objective Radiology Results Last 48 hours Impressions Chest X-Ray 07/09/16 0600 Signed Impressions: Service Date/Time: June 04:21 - CONCLUSION: 1. Left lower lobe atelectasis versus pneumonia. Left pleural effusion 2. The findings have worsened when compared with the prior examination. Chris Negrete MD Head CT 07/09/16 Signed Impressions: Service Date/Time: June 04:38 - CONCLUSION: 1. Findings of stable mild cerebral edema and stable left frontal contusion 2. No acute intracranial hemorrhage is identified Chris Negrete MD Chest X-Ray 07/08/16 Signed Impressions: Service Date/Time: Friday, July 08, 2016 04:09 - CONCLUSION: 1. Left lower lobe atelectasis versus pneumonia. The findings are similar to the prior exam. Chris Negrete MD Head CT 07/07/161999 Signed Impressions: Service Date/Time: Thursday, July 07, 2016 21:18 - CONCLUSION: 1. Good placement of a pressure monitor from the right frontal approach. 2. Persistent small 3 mm subdural collection seen at the posterior left cerebral hemisphere over the left parietal, posterior temporal and occipital regions. 3. The ventricles, cortical sulci and basal cisterns are open. 4. Small focal hemorrhage seen in the superior left frontal parietal region. Delroy Grimaldo MD Micro and Labs Laboratory Tests Test 07/08/16 07/09/16 07/09/16 07/09/16 21:20 04:00 06:00 10:00 Sodium Level 149 150 153 Serum Osmolality 307 308 311 White Blood Count 16.5 Red Blood Count 4.10 Hemoglobin 12.2 Hematocrit 36.9 Mean Corpuscular Volume 90.0 Mean Corpuscular Hemoglobin 29.7 Mean Corpuscular Hemoglobin 33.1 Concent Red Cell Distribution Width 13.9 Platelet Count 167 Mean Platelet Volume 9.5 Potassium Level 4.1 Chloride Level 123 Carbon Dioxide Level 16.5 Anion Gap 11 Blood Urea Nitrogen 8 Creatinine 1.05 Estimat Glomerular Filtration 74 Rate Random Glucose 123 Calcium Level 7.5 Total Bilirubin 0.5 Aspartate Amino Transf 48 (AST/SGOT) Alanine Aminotransferase 37 (ALT/SGPT) Alkaline Phosphatase 56 Total Protein 5.5 Albumin 2.6 Phenytoin (Dilantin) Level 10.2 Valproic Acid (Depakene) Level 46 Blood Gas Puncture Site ART LINE Blood Gas Patient Temperature 98.6 Blood Gas HCO3 17 Blood Gas Base Excess -6.7 Blood Gas Oxygen Saturation 96 Arterial Blood pH 7.41 Arterial Blood Partial 28 Pressure CO2 Arterial Blood Partial 117 Pressure O2 Arterial Blood Oxygen Content 16.3 Arterial Blood 1.0 Carboxyhemoglobin Arterial Blood Methemoglobin 1.0 Blood Gas Hemoglobin 11.9 Oxygen Delivery Device VENTILATOR Blood Gas Ventilator Setting PRVC/AC Blood Gas Inspired Oxygen 40 Urine Random Creatinine 198.6 Urine Random Sodium 210 Test 07/09/16 07/09/16 12:32 16:20 Blood Gas Puncture Site ART LINE Blood Gas Patient Temperature 98.6 Blood Gas HCO3 18 Blood Gas Base Excess -6.5 Blood Gas Oxygen Saturation 97 Arterial Blood pH 7.39 Arterial Blood Partial 29 Pressure CO2 Arterial Blood Partial 129 Pressure O2 Arterial Blood Oxygen Content 16.0 Arterial Blood 1.3 Carboxyhemoglobin Arterial Blood Methemoglobin 1.0 Blood Gas Hemoglobin 11.6 Oxygen Delivery Device VENTILATOR Blood Gas Ventilator Setting Blood Gas Inspired Oxygen 40 Sodium Level 151 Potassium Level 3.8 Chloride Level 121 Carbon Dioxide Level 20.0 Anion Gap 10 Blood Urea Nitrogen 7 Creatinine 1.01 Estimat Glomerular Filtration 77 Rate Random Glucose 111 Serum Osmolality 313 Calcium Level 7.6 Total Bilirubin 0.9 Aspartate Amino Transf 37 (AST/SGOT) Alanine Aminotransferase 30 (ALT/SGPT) Alkaline Phosphatase 55 Total Protein 5.4 Albumin 2.6 Marky Arshad MD Jul 09, 2016 17:58
[2016-07-09] MEDS: SODIUM CHLOR 0.9% 1000 ML INJ 1,000 ML IV SCH (21:11)
[2016-07-09] MEDS: MAGNESIUM HYDROXIDE SUSP 30 ML CUP PO SCH (21:12)
[2016-07-09] MEDS: NOREPINEPHRINE INJ 4 MG in SODIUM CHLOR 0.9% 250 ML INJ 250 ML IV SCH (22:19)
[2016-07-10] VITALS (19 sets, daily range): BP systolic 122–156; BP diastolic 54–66; PULSE 60–98; RESP 17–18; TEMP 97.3–101.7; O2SAT 91–100
[2016-07-10] MEDS: PROPOFOL 1000 MG/100 ML INJ 100 ML IV SCH ×6 (00:53→21:36)
[2016-07-10] MEDS: RESP: ALBUTEROL 2.5 MG/IPRATROPIUM 0.5 MG NEB (SCH) INH ×4 (03:36→20:59)
[2016-07-10 03:45] LABS: AUTOMATED NEUTROPHIL # 12.1 TH/MM3 (1.8-7.7); BASOPHIL % 0.3 % (0.0-2.0); EOSINOPHIL # 0.4 TH/MM3 (0-0.4); EOSINOPHIL % 2.6 % (0.0-4.0); HEMATOCRIT 33.2 % (39.0-51.0); HEMO FLAGS DIFF FINAL; LYMPH % 4.7 % (9.0-44.0); LYMPHOCYTE # 0.7 TH/MM3 (1.0-4.8); MEAN CELL VOLUME 90.2 FL (80.0-100.0); MEAN CORPUSCULAR HGB CONC 33.3 % (32.0-36.0); MONO % 4.6 % (0.0-8.0); NEUT % 87.8 % (16.0-70.0); PLATELET COUNT 144 TH/MM3 (150-450); RED BLOOD COUNT 3.68 MIL/MM3 (4.50-5.90); RED CELL DISTRIBUTION WIDTH 14.2 % (11.6-17.2); WHITE BLOOD COUNT 13.8 TH/MM3 (4.0-11.0)
[2016-07-10 04:03] LABS: ALT (GPT) 29 U/L (12-78); ANION GAP 7 MEQ/L (5-15); AST (GOT) 36 U/L (15-37); BICARBONATE 22.1 MEQ/L (21.0-32.0); BLOOD UREA NITROGEN 9 MG/DL (7-18); CHLORIDE 127 MEQ/L (98-107); GLOMERULAR FILTRATION RATE 76 ML/MIN (>89); POTASSIUM 3.6 MEQ/L (3.5-5.1)
[2016-07-10 04:12] LABS: ALKALINE PHOSPHATASE 60 U/L (45-117); TOTAL BILIRUBIN ADULT 0.9 MG/DL (0.2-1.0)
[2016-07-10 04:16] LABS: SODIUM (NA) 156 MEQ/L (136-145)
[2016-07-10 04:25] LABS: BLOOD GAS BASE EXCESS -5.4 mmol/L (-2-2); BLOOD GAS CARBOXYHEMOGLOBIN 1.4 % (0-4); BLOOD GAS HCO3 19 mmol/L (22-26); BLOOD GAS O2 HGB SATURATION 90 % (90-100); BLOOD GAS PCO2 35 mmHg (38-42); BLOOD GAS PO2 64 mmHg (61-120); BLOOD GAS TOTAL HGB 11.1 G/DL (12.0-16.0); CRITICAL VALUE NO; OXYGEN DEVICE VENTILATOR; TEMP CORR TO 98.6; VENT SETTINGS PRVC-AC
[2016-07-10 04:26] LABS: DRAW SITE ART LINE; FIO2 35 %; STAT NO
[2016-07-10] MEDS: MIDAZOLAM 100 MG/ML INJ 100 ML IV SCH ×2 (04:32→18:29)
[2016-07-10] MEDS: fentaNYL DRIP 250 ML IV SCH ×2 (04:32→15:48)
--- NOTE | 2016-07-10 04:40 | RADRPT ---
EXAM DATE/TIME: 07/10/2016 03:28 [place] COMPARISON: CHEST SINGLE AP, July 09, 2016, 4:21. INDICATIONS : Evaluate for respiratory disease. MEDICAL HISTORY : None. SURGICAL HISTORY : None. ENCOUNTER: Subsequent ACUITY: 4 - 6 days PAIN SCORE: Non-responsive. LOCATION: chest FINDINGS: The cardiac silhouette is enlarged in transverse diameter. There is left lower lobe atelectasis versu s pneumonia. A small left sided effusion is present. There is minimal right basilar atelectasis. CONCLUSION: 1. Left lower lobe atelectasis versus pneumonia. There has been no significant change when compared t o the prior exam. 2. New right basilar atelectasis versus pneumonia Chris Negrete MD on July 10, 2016 at 4:37 Board Certified Radiologist. This report was verified electronically.
[2016-07-10] MEDS: SODIUM PHOSPHATE INJ 30 MMOL in SODIUM CHLOR 0.9% 250 ML INJ 240 ML IV PRN (04:55)
[2016-07-10] MEDS: NOREPINEPHRINE INJ 4 MG in SODIUM CHLOR 0.9% 250 ML INJ 250 ML IV SCH ×3 (04:55→19:06)
[2016-07-10] MEDS: CHLORHEXIDINE GLUCONATE 2 % 1 PACK (2 CLOTHS) TOP SCH (04:55)
[2016-07-10] MEDS: levETIRAcetam 1000 MG INJ 100 ML IV SCH ×2 (05:54→16:42)
[2016-07-10] MEDS: FOSPHENYTOIN SODIUM 100 MG PE/2 ML VIAL IV SCH ×3 (05:54→21:37)
[2016-07-10] MEDS: CHLORHEXIDINE 0.12% (ORAL KIT) 15 ML CUP MT SCH ×2 (08:00→20:35)
[2016-07-10] MEDS: DOCUSATE SODIUM 100 MG/10 ML UDC PO SCH ×2 (08:03→20:35)
[2016-07-10] MEDS: VALPROATE IV SCH ×4 (08:03→19:32)
[2016-07-10] MEDS: LACTULOSE SYRUP 20 GM/30 ML CUP PO SCH (08:03)
[2016-07-10] MEDS: SODIUM CHLORIDE 0.9% FLUSH 5 ML FLUSH IV FLUSH SCH ×2 (08:03→20:35)
[2016-07-10] MEDS: NS IV SCH ×4 (08:03→19:32)
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
[2016-07-10] MEDS: PANTOPRAZOLE SODIUM 40 MG VIAL IVP SCH (11:31)
[2016-07-10] MEDS: FUROSEMIDE 40 MG/4 ML VIAL IV PUSH SCH (11:31)
[2016-07-10] MEDS: 3% SALINE INJ 500 ML IV SCH ×2 (11:32→15:48)
--- NOTE | 2016-07-10 12:18 | HHI.PR ---
Neuropsych Progress Notes/Response to Tx Contents of Sessions: Level of Consciousness Time with Patient: 15 minutes Premorbid psychological status Premorbid Cognitive, Emotional and Behavioral Status: Tenuous. It is unclear this patient's educational, occupational or psychiatric histories. He was positive for THC on admit. Behavioral Reactions of Patient and Family/Support System: Unable to Assess. There are many individuals present in his hospital room, to such an extent that limitations on visitors are necessary. During my visits there were no decision makers or persons available to obtain a clear history. Emotional/Behavioral Status of Patient and Family/Support System: Unable to Assess. Pertinent issues, if appropriate to this patients clinical care, are described in detail above. Maximizing acute care outcome It is recommended that the patient be monitored for emergent behavioral impulsivity as the medical condition evolves. This patients neuropathological challenges may limit their rehabilitation potential going forward, and these challenges will require specialized therapeutic skills to maximize outcome. Anticipated Problems Ongoing areas of concern will include behavioral impulsivity, lack of insight and judgment, which is expected to improve with time and treatment. Presently , the patient is sedated and intubated. Treatment Plan This clinician will continue to follow with you throughout the course of this patients rehabilitation treatment, and I will be available to meet with the patients family/support system to facilitate their understanding and the ongoing care of their family member. The goals of neuropsychological intervention shall be both educational and supportive to the family/support system as is deemed clinically appropriate. [facility] Level: I:No response-total assistance Diagnosis: (1) Major neurocognitive disorder as late effect of traumatic brain injury with behavioral disturbance Status: Acute Progress Note Narrative Ongoing follow-up of patient both within the context of daily trauma rounding and bedside. This patient is on a low stim/min stim protocol to reduce environmental irritants that may hamper his recovery. It is understood that this patient developed generalized tonic-clonic seizures and is presently on several anti-epilepsy medications. From a neurobehavioral perspective, this patient is nonresponsive at present, is sedated and intubated. I will continue to follow with you. Emil Dang PhD Jul 10, 2016 12:18 pm
--- NOTE | 2016-07-10 13:15 | EKG ---
Date Performed: 07/08/2016 Time Performed: 01:06:52 PTAGE: 89 years EKG: Sinus bradycardia Prolonged QT interval Septal T wave changes may be due to myocardial isch emia Pronlonged QT interval is new since prior tracing, otherwise, largely unchanged. PREVIOUS TRACING : 07/07/2016 17.35.03 DOCTOR: Dany Merchant Interpretating Date/Time 07/10/2016 13:14:32
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
[2016-07-10] MEDS ORDERED: FOSPHENYTOIN SODIUM 100 MG PE/2 ML VIAL IV ONE (14:00)
[2016-07-10] MEDS ORDERED: ACETAMINOPHEN 650 MG SUPP PR PRN (14:00)
[2016-07-10] MEDS ORDERED: FOSPHENYTOIN INJ 200 MGPE in SODIUM CHLORIDE 0.9% INJ 50 ML IV ONE (15:00)
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
[2016-07-10] MEDS: ACETAMINOPHEN 1000 MG/100 ML VIAL IV PRN (15:47)
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
[2016-07-10 20:29] LABS: BLOOD, URINE NEG (NEG); GLUCOSE,URINE NEG (NEG); KETONE, URINE 10 mg/dL (NEG); MUCUS URINE FEW /lpf (OCC); NITRITE,URINE NEG (NEG); SQUAMOUS EPITHELIAL CELL URINE 1 /hpf (0-5)
[2016-07-10 20:32] LABS: URINE COLOR DARK-YELLOW (YELLW/STRAW)
[2016-07-10 20:33] LABS: COMMENT (UR) CATH-CULT NOT IND; CULTURE IF INDICATED CATH CULTURE NOT IND
[2016-07-10] MEDS: MAGNESIUM HYDROXIDE SUSP 30 ML CUP PO SCH (20:35)
[2016-07-11] VITALS (18 sets, daily range): BP systolic 104–179; BP diastolic 46–69; PULSE 77–104; RESP 18–19; TEMP 98.6–100.9; O2SAT 95–100
[2016-07-11] MEDS: MIDAZOLAM 100 MG/ML INJ 100 ML IV SCH ×4 (01:17→21:23)
[2016-07-11] MEDS: PROPOFOL 1000 MG/100 ML INJ 100 ML IV SCH ×6 (01:17→21:23)
[2016-07-11] MEDS ORDERED: MIDAZOLAM HCL 5 MG/ML VIAL (1 ML) IV ONE (01:30)
[2016-07-11] MEDS: RESP: ALBUTEROL 2.5 MG/IPRATROPIUM 0.5 MG NEB (SCH) INH ×2 (03:02→08:38)
[2016-07-11 04:21] LABS: BLOOD GAS BASE EXCESS -4.9 mmol/L (-2-2); BLOOD GAS CARBOXYHEMOGLOBIN 1.4 % (0-4); BLOOD GAS HCO3 20 mmol/L (22-26); BLOOD GAS METHEMOGLOBIN 1.2 % (0-2); BLOOD GAS O2 HGB SATURATION 94 % (90-100); BLOOD GAS OXYGEN CONTENT 13.8 Vol % (12.0-20.0); BLOOD GAS PCO2 39 mmHg (38-42); BLOOD GAS PO2 89 mmHg (61-120); BLOOD GAS TOTAL HGB 10.3 G/DL (12.0-16.0); CRITICAL VALUE NO; OXYGEN DEVICE VENTILATOR; TEMP CORR TO 98.6
[2016-07-11 04:22] LABS: DRAW SITE ART LINE; FIO2 60 %; VENT SETTINGS PRVC/AC
[2016-07-11 04:23] LABS: STAT NO
[2016-07-11 04:34] LABS: AUTOMATED NEUTROPHIL # 14.5 TH/MM3 (1.8-7.7); BASOPHIL % 0.2 % (0.0-2.0); EOSINOPHIL # 0.1 TH/MM3 (0-0.4); EOSINOPHIL % 0.8 % (0.0-4.0); HEMO FLAGS AUTO DIFF; LYMPH % 3.1 % (9.0-44.0); LYMPHOCYTE # 0.5 TH/MM3 (1.0-4.8); MEAN CELL VOLUME 91.5 FL (80.0-100.0); MEAN CORPUSCULAR HEMOGLOBIN 29.7 PG (27.0-34.0); MEAN CORPUSCULAR HGB CONC 32.5 % (32.0-36.0); MONO % 6.1 % (0.0-8.0); NEUT % 89.8 % (16.0-70.0); PLATELET COUNT 146 TH/MM3 (150-450); RED BLOOD COUNT 3.39 MIL/MM3 (4.50-5.90); WHITE BLOOD COUNT 16.1 TH/MM3 (4.0-11.0)
[2016-07-11] MEDS: CHLORHEXIDINE GLUCONATE 2 % 1 PACK (2 CLOTHS) TOP SCH (04:39)
[2016-07-11] MEDS: FOSPHENYTOIN SODIUM 100 MG PE/2 ML VIAL IV SCH ×3 (05:15→21:24)
[2016-07-11] MEDS: levETIRAcetam 1000 MG INJ 100 ML IV SCH ×2 (05:15→18:00)
[2016-07-11 05:22] LABS: CALCIUM-PROTEIN CORRECTED 8.3 MG/DL (8.5-10.1); MAGNESIUM 1.9 MG/DL (1.5-2.5); TOTAL BILIRUBIN ADULT 1.1 MG/DL (0.2-1.0)
[2016-07-11] MEDS: POTASSIUM CHLOR 40 MEQ PREMIX 100 ML IV PRN ×2 (05:30→07:22)
[2016-07-11] MEDS: 3% SALINE INJ 500 ML IV SCH ×2 (05:59→18:00)
--- NOTE | 2016-07-11 06:29 | RADRPT ---
EXAM DATE/TIME: 07/11/2016 04:44 [place] COMPARISON: CHEST SINGLE AP, July 10, 2016, 3:28. INDICATIONS : Shortness of breath. MEDICAL HISTORY : None. SURGICAL HISTORY : None. ENCOUNTER: Subsequent ACUITY: 4 - 6 days PAIN SCORE: Non-responsive. LOCATION: Bilateral chest FINDINGS: The cardiac silhouette is enlarged in transverse diameter. Moderate size bilateral pleural effusions are identified. There is left lower lobe atelectasis versus pneumonia. Support lines and tubes are in satisfactory position.CONCLUSION: 1. The cardiac silhouette is enlarged in transverse diameter. 2. Left lower lobe atelectasis versus pneumonia. The findings have worsened when compared with the pr ior examination. Chris Negrete MD on July 11, 2016 at 6:27 Board Certified Radiologist. This report was verified electronically.
[2016-07-11 06:37] LABS: BANDS 29 % (0-6); EOSINOPHILS 1 % (0-4); METAMYELOCYTES 13 % (0-1); MYELOCYTES 3 % (0-0); NEUTROPHIL # MANUAL DIFF 15.1 TH/MM3 (1.8-7.7); PLATELET ESTIMATE SMEAR LOW (NORMAL); PLATELET MORPHOLOGY NORMAL (NORMAL); POLYS (SEG NEUTROPHILS) 49 % (16-70); SCAN/DIFF FINAL DIFF MANUAL; WBC DIFF SAMPLE 100
[2016-07-11] MEDS: CHLORHEXIDINE 0.12% (ORAL KIT) 15 ML CUP MT SCH ×2 (08:00→20:23)
[2016-07-11] MEDS: SODIUM CHLORIDE 0.9% FLUSH 5 ML FLUSH IV FLUSH SCH ×2 (08:51→20:24)
[2016-07-11] MEDS: FUROSEMIDE 40 MG/4 ML VIAL IV PUSH SCH (08:51)
[2016-07-11] MEDS: VALPROATE IV SCH ×4 (08:51→19:35)
[2016-07-11] MEDS: NS IV SCH ×4 (08:51→19:35)
[2016-07-11] MEDS: LACTULOSE SYRUP 20 GM/30 ML CUP PO SCH (08:51)
[2016-07-11] MEDS: DOCUSATE SODIUM 100 MG/10 ML UDC PO SCH ×2 (08:51→20:23)
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
[2016-07-11] MEDS: PANTOPRAZOLE SODIUM 40 MG VIAL IVP SCH (12:46)
[2016-07-11] MEDS: hydrALAZINE HCL 20 MG/ML VIAL IV PRN (12:46)
[2016-07-11] MEDS: cloNIDine HCL 0.1 MG TAB PO PRN (13:15)
[2016-07-11] MEDS: RESP: ALBUTEROL 2.5 MG/IPRATROPIUM 0.5 MG NEB (PRN) INH ×2 (16:24→21:29)
[2016-07-11] MEDS: MAGNESIUM HYDROXIDE SUSP 30 ML CUP PO SCH (20:23)
--- NOTE | 2016-07-11 20:48 | HHI.PR ---
Review/Management Diagnosis TBI sz---stable on cerebyx, vpa, keppra. levels are therapeutic. Diagnosis/Plan: Daily Summary heavy sedation still needed no seizure today eeg diffuse slowing, repeat pending will monitor Subjective Subjective Comments No acute events reported No seizures Active Medications Current Medications Medications (Trade) Dose Ordered Sig/Romy Route Start Time Stop Time Status Last Admin (Tylenol) 650 mg Q6H PRN PO 07/07/16 11:15 (Zofran Inj) 4 mg Q6H PRN IV 07/07/16 11:15 (Milk Of Magnesia Liq) 30 ml HS PO 07/07/16 21:00 07/11/16 20:23 Miscellaneous Information 1 Q361D XX 07/07/16 11:15 07/07/16 11:15 (Chlorhexidine 2% Cloth) 3 pack Taper DAILY@04 TOP 07/08/16 04:00 07/04/17 03:59 07/11/16 04:39 (Chlorhexidine 2% Cloth) 3 pack UNSCH PRN TOP 07/07/16 11:15 (K-Phos) 2,000 mg UNSCH PRN PO/TUBE 07/07/16 11:15 (NS Flush) 2 ml UNSCH PRN IV FLUSH 07/07/16 11:45 (NS Flush) 2 ml BID IV FLUSH 07/07/16 21:00 07/11/16 20:24 (Protonix Inj) 40 mg Q24H IVP 07/07/16 12:00 07/11/16 12:46 Chlorhexidine Gluconate 15 ml 15 ml BID@08,20 MT 07/07/16 20:00 07/11/16 20:23 (Diprivan 1000 Mg/100ml Inj) 100 ml @ 0 mls/hr TITRATE IV 07/07/16 13:45 07/11/16 18:00 Hydralazine HCl 10 mg 10 mg Q1H PRN IV 07/07/16 14:00 07/11/16 12:46 Sodium Chloride 500 ml @ 40 mls/hr Q24H IV 07/07/16 16:15 07/11/16 18:00 Fentanyl Citrate 250 ml @ 0 mls/hr TITRATE IV 07/07/16 17:30 07/10/16 15:48 (Versed Inj) 100 ml @ 0 mls/hr TITRATE IV 07/07/16 17:30 07/11/16 14:40 Fentanyl Citrate 100 mcg 100 mcg Q1H PRN IV PUSH 07/07/16 17:30 07/08/16 05:01 Levetriacetam 100 ml @ 400 mls/hr Q12H IV 07/07/16 18:00 07/11/16 18:00 Potassium Chloride 100 ml @ 50 mls/hr Q2H PRN IV 07/07/16 17:30 07/11/16 07:22 (KCl 20 Meq Premix Inj) 100 ml @ 50 mls/hr Q2H PRN IV 07/07/16 17:30 Potassium Chloride 40 meq 40 meq UNSCH PRN PO/TUBE 07/07/16 17:30 Potassium Chloride 100 ml @ 25 mls/hr UNSCH PRN IV 07/07/16 17:30 Potassium Chloride 100 ml @ 50 mls/hr Q2H PRN IV 07/07/16 17:30 (Magnesium Sulfate Inj/NS Inj) 100 ml @ 50 mls/hr UNSCH PRN IV 07/07/16 17:30 Magnesium Oxide 800 mg 800 mg UNSCH PRN PO 07/07/16 17:30 (Magnesium Sulfate Inj/NS Inj) 100 ml @ 50 mls/hr UNSCH PRN IV 07/07/16 17:30 Potassium Phosphate 2000 mg 2,000 mg Q4H PRN PO 07/07/16 17:30 (Sodium Phosphate Inj/NS 250 ml Inj) 250 ml @ 42 mls/hr UNSCH PRN IV 07/07/16 17:30 07/10/16 04:55 (KCl 40 Meq/30 ml Liq) 40 meq UNSCH PRN PO/TUBE 07/07/16 17:30 Potassium Phosphate 2000 mg 2,000 mg UNSCH PRN PO/TUBE 07/07/16 17:30 Potassium Phosphate 30 mmol/ Sodium Chloride 260 ml @ 42 mls/hr UNSCH PRN IV 07/07/16 17:30 (Levophed Inj/NS 250 ml Inj) 254 ml @ 0 mls/hr TITRATE IV 07/07/16 20:15 07/10/16 19:06 (Colace Liq) 100 mg Q12HR PO 07/08/16 11:00 07/11/16 20:23 (Cerebyx Inj) 100 mgpe Q8HR IV 07/08/16 22:00 07/11/16 13:15 Lorazepam 1 mg 1 mg Q15M PRN IV PUSH 07/08/16 17:15 (Depacon Inj/NS Inj) 105 ml @ 105 mls/hr Q12H IV 07/09/16 08:00 07/11/16 19:35 (Lactulose Liq) 30 ml DAILY PO 07/09/16 17:30 07/11/16 08:51 (Tylenol Supp) 650 mg Q4H PRN WI 07/10/16 14:00 (Ofirmev Inj) 1,000 mg Q8HR PRN IV 07/10/16 14:00 07/10/16 15:47 (Catapres) 0.1 mg Q6H PRN PO 07/11/16 12:45 07/11/16 13:15 Allergies Allergies Coded Allergies No Known Allergies (Unverified07/07/16) Exam I&O / VS 07/10/16 07/10/16 07/11/16 15:00 23:00 07:00 Intake Total 2183 ml 1887 ml 1453 ml Output Total 3550 ml 675 ml 350 ml Balance -1367 ml 1212 ml 1103 ml Intake IV Total 2183 ml 1887 ml 1342 ml Tube Feeding 111 ml Output Urine Total 3250 ml 600 ml 350 ml Gastric Drainage Total 300 ml 75 ml Tube Feeding Residual Discard 0 ml # Bowel Movements 0 0 Vital Signs Date Time Temp Pulse Resp B/P Pulse Ox O2 Delivery O2 Flow Rate FiO2 07/11/16 18:00 104 07/11/16 16:24 96 60 07/11/16 16:00 60 07/11/16 16:00 100.8 102 19 146/52 96 07/11/16 16:00 92 07/11/16 14:00 104 07/11/16 12:00 99.3 102 18 96 179/69 07/11/16 12:00 103 07/11/16 12:00 60 07/11/16 11:34 100 60 07/11/16 10:00 82 07/11/16 08:38 98 60 07/11/16 08:00 99.1 82 18 100 104/48 07/11/16 08:00 60 07/11/16 08:00 85 07/11/16 06:00 77 07/11/16 04:38 98 60 07/11/16 04:00 60 07/11/16 04:00 80 07/11/16 04:00 98.6 80 18 97 126/54 07/11/16 02:00 81 07/11/16 00:49 98 60 07/11/16 00:00 60 07/11/16 00:00 78 07/11/16 00:00 99.0 78 18 99 148/69 07/10/16 22:00 80 07/10/16 20:59 97 60 Respiratory: Lungs CTA, Non-labored respirations, BS equal Cardiology: Normal rate, Regular Rhythm Musculoskeletal: ROM (Grossly within functional limits) Exam Comments sedated/nonresponsive pupils 2 mm symmetric normal ue tone. no spontaneous limb movement Objective Micro and Labs Laboratory Tests Test 07/10/16 07/11/16 07/11/16 07/11/16 22:30 04:09 04:10 14:00 Sodium Level 159 159 160 Serum Osmolality 322 334 332 Blood Gas Puncture Site ART LINE Blood Gas Patient Temperature 98.6 Blood Gas HCO3 20 Blood Gas Base Excess -4.9 Blood Gas Oxygen Saturation 94 Arterial Blood pH 7.33 Arterial Blood Partial 39 Pressure CO2 Arterial Blood Partial 89 Pressure O2 Arterial Blood Oxygen Content 13.8 Arterial Blood 1.4 Carboxyhemoglobin Arterial Blood Methemoglobin 1.2 Blood Gas Hemoglobin 10.3 Oxygen Delivery Device VENTILATOR Blood Gas Ventilator Setting PRVC/AC Blood Gas Inspired Oxygen 60 White Blood Count 16.1 Red Blood Count 3.39 Hemoglobin 10.1 Hematocrit 31.0 Mean Corpuscular Volume 91.5 Mean Corpuscular Hemoglobin 29.7 Mean Corpuscular Hemoglobin 32.5 Concent Red Cell Distribution Width 14.0 Platelet Count 146 Mean Platelet Volume 9.3 Neutrophils (%) (Auto) 89.8 Lymphocytes (%) (Auto) 3.1 Monocytes (%) (Auto) 6.1 Eosinophils (%) (Auto) 0.8 Basophils (%) (Auto) 0.2 Neutrophils # (Auto) 14.5 Lymphocytes # (Auto) 0.5 Monocytes # (Auto) 1.0 Eosinophils # (Auto) 0.1 Basophils # (Auto) 0.0 CBC Comment AUTO DIFF Differential Total Cells 100 Counted Neutrophils % (Manual) 49 Band Neutrophils % 29 Lymphocytes % 3 Monocytes % 2 Eosinophils % 1 Neutrophils # (Manual) 15.1 Metamyelocytes 13 Myelocytes 3 Differential Comment FINAL DIFF MANUAL Platelet Estimate LOW Platelet Morphology Comment NORMAL Red Cell Morphology Comment NORMAL Potassium Level 3.0 Chloride Level 127 Carbon Dioxide Level 23.0 Anion Gap 9 Blood Urea Nitrogen 11 Creatinine 1.30 Estimat Glomerular Filtration 58 Rate Random Glucose 115 Calcium Level 7.4 Protein Corrected Calcium 8.3 Phosphorus Level 2.8 Magnesium Level 1.9 Total Bilirubin 1.1 Aspartate Amino Transf 32 (AST/SGOT) Alanine Aminotransferase 25 (ALT/SGPT) Alkaline Phosphatase 71 Total Protein 5.5 Albumin 1.9 Phenytoin (Dilantin) Level 12.0 Valproic Acid (Depakene) Level 57 Date/Time Procedure Status Source Growth 07/10/16 22:42 Gram Stain - Final Resulted Sputum Endotracheal 07/10/16 22:42 Sputum Culture - Preliminary Resulted Staphylococcus Aureus 07/10/16 20:50 Cancelled Sputum Expectorated Sputum 07/10/16 19:14 Aerobic Blood Culture - Preliminary Resulted Blood Peripheral NO GROWTH IN 1 DAY 07/10/16 19:14 Anaerobic Blood Culture - Preliminary Resulted Blood Peripheral NO GROWTH IN 1 DAY Sandor Caro PhD Jul 11, 2016 20:48
[2016-07-11] MEDS: ACETAMINOPHEN 1000 MG/100 ML VIAL IV PRN (21:17)
[2016-07-12] VITALS (19 sets, daily range): BP systolic 127–170; BP diastolic 57–80; PULSE 98–111; RESP 18–25; TEMP 99–100.8; O2SAT 92–99
[2016-07-12] MEDS: CHLORHEXIDINE GLUCONATE 2 % 1 PACK (2 CLOTHS) TOP SCH (04:11)
[2016-07-12] MEDS: RESP: ALBUTEROL 2.5 MG/IPRATROPIUM 0.5 MG NEB (PRN) INH ×2 (04:31→08:39)
[2016-07-12 04:36] LABS: AUTOMATED NEUTROPHIL # 12.9 TH/MM3 (1.8-7.7); BASOPHIL # 0.1 TH/MM3 (0-0.2); BASOPHIL % 0.4 % (0.0-2.0); EOSINOPHIL # 0.1 TH/MM3 (0-0.4); EOSINOPHIL % 0.6 % (0.0-4.0); HEMATOCRIT 27.9 % (39.0-51.0); LYMPH % 2.9 % (9.0-44.0); LYMPHOCYTE # 0.4 TH/MM3 (1.0-4.8); MEAN CELL VOLUME 89.8 FL (80.0-100.0); MEAN CORPUSCULAR HGB CONC 33.4 % (32.0-36.0); MONO % 7.7 % (0.0-8.0); NEUT % 88.4 % (16.0-70.0); PLATELET COUNT 188 TH/MM3 (150-450); RED CELL DISTRIBUTION WIDTH 14.3 % (11.6-17.2); WHITE BLOOD COUNT 14.6 TH/MM3 (4.0-11.0)
[2016-07-12 04:37] LABS: HEMO FLAGS AUTO DIFF
[2016-07-12 04:51] LABS: ALKALINE PHOSPHATASE 73 U/L (45-117); ALT (GPT) 28 U/L (12-78); ANION GAP 10 MEQ/L (5-15); AST (GOT) 41 U/L (15-37); BICARBONATE 24.9 MEQ/L (21.0-32.0); BLOOD UREA NITROGEN 20 MG/DL (7-18); CHLORIDE 129 MEQ/L (98-107); GLOMERULAR FILTRATION RATE 52 ML/MIN (>89); MAGNESIUM 2.4 MG/DL (1.5-2.5); TOTAL BILIRUBIN ADULT 1.3 MG/DL (0.2-1.0)
[2016-07-12 04:52] LABS: SODIUM (NA) 164 MEQ/L (136-145)
[2016-07-12 04:53] LABS: POTASSIUM 2.7 MEQ/L (3.5-5.1)
[2016-07-12] MEDS: POTASSIUM CHLOR 40 MEQ PREMIX 100 ML IV PRN ×4 (05:09→23:29)
[2016-07-12 05:42] LABS: BLOOD GAS CARBOXYHEMOGLOBIN 1.8 % (0-4); BLOOD GAS HCO3 23 mmol/L (22-26); BLOOD GAS METHEMOGLOBIN 1.3 % (0-2); BLOOD GAS O2 HGB SATURATION 93 % (90-100); BLOOD GAS OXYGEN CONTENT 13.6 Vol % (12.0-20.0); BLOOD GAS PO2 77 mmHg (61-120); BLOOD GAS TOTAL HGB 10.4 G/DL (12.0-16.0); TEMP CORR TO 98.6
[2016-07-12 05:44] LABS: CRITICAL VALUE NO; DRAW SITE ART LINE; FIO2 60 %; OXYGEN DEVICE VENTILATOR; STAT NO; VENT SETTINGS PRVC/AC
[2016-07-12 05:45] LABS: BLOOD GAS PCO2 39 mmHg (38-42)
[2016-07-12] MEDS: FOSPHENYTOIN SODIUM 100 MG PE/2 ML VIAL IV SCH ×3 (05:57→21:35)
[2016-07-12] MEDS: levETIRAcetam 1000 MG INJ 100 ML IV SCH ×2 (05:57→18:00)
--- NOTE | 2016-07-12 06:01 | RADRPT ---
EXAM DATE/TIME: 07/12/2016 04:36 [facility] COMPARISON: CHEST SINGLE AP, July 11, 2016, 4:44. INDICATIONS : Shortness of breath. MEDICAL HISTORY : None. SURGICAL HISTORY : None. ENCOUNTER: Subsequent ACUITY: 4 - 6 days PAIN SCORE: Non-responsive. LOCATION: Bilateral chest FINDINGS: The cardiac silhouette is enlarged in transverse diameter. There are findings of congestive heart katy lure with interstitial and alveolar opacity bilaterally. There is bilateral lower lobe atelectasis ve rsus pneumonia. Moderate size bilateral pleural effusions are identified. CONCLUSION: 1. Cardiomegaly and findings of congestive heart failure. There has been no significant change when c ompared to the prior exam. Chris Negrete MD on July 12, 2016 at 5:59 Board Certified Radiologist. This report was verified electronically.
[2016-07-12] MEDS: MIDAZOLAM 100 MG/ML INJ 100 ML IV SCH ×2 (07:19→21:23)
[2016-07-12 07:20] LABS: BANDS 58 % (0-6); METAMYELOCYTES 5 % (0-1); MYELOCYTES 4 % (0-0); NEUTROPHIL # MANUAL DIFF 13.3 TH/MM3 (1.8-7.7); POLYS (SEG NEUTROPHILS) 24 % (16-70); WBC DIFF SAMPLE 100
[2016-07-12 07:21] LABS: DOHLE BODIES PRESENT (NONE SEEN)
[2016-07-12 07:22] LABS: PLATELET ESTIMATE SMEAR NORMAL (NORMAL); PLATELET MORPHOLOGY NORMAL (NORMAL); SCAN/DIFF FINAL DIFF MANUAL; TOXIC GRANULATION 1+ (NORMAL)
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
[2016-07-12] MEDS ORDERED: Vancomycin Consult Pharmacy 1 EA OTHER SCH (07:45)
[2016-07-12] MEDS: PIPERACIL-TAZO 4.5 GM PREMIX 100 ML IV SCH ×3 (08:00→21:23)
[2016-07-12] MEDS: VALPROATE IV SCH ×4 (08:00→21:38)
[2016-07-12] MEDS: CHLORHEXIDINE 0.12% (ORAL KIT) 15 ML CUP MT SCH ×2 (08:00→21:23)
[2016-07-12] MEDS: NS IV SCH ×4 (08:00→21:38)
[2016-07-12] MEDS: RESP: ALBUTEROL 2.5 MG/IPRATROPIUM 0.5 MG NEB (SCH) NEB ×3 (08:41→22:21)
[2016-07-12] MEDS: DOCUSATE SODIUM 100 MG/10 ML UDC PO SCH ×2 (09:00→21:23)
[2016-07-12] MEDS: SODIUM CHLORIDE 0.9% FLUSH 5 ML FLUSH IV FLUSH SCH ×2 (09:00→21:24)
[2016-07-12] MEDS: LACTULOSE SYRUP 20 GM/30 ML CUP PO SCH (09:00)
[2016-07-12] MEDS: SODIUM CHLOR 0.45% 1000 ML INJ 1,000 ML IV SCH (10:00)
[2016-07-12] MEDS: VANCOMYCIN INJ 1,500 MG in SODIUM CHLORID 0.9% 500 ML INJ 500 ML IV SCH ×2 (11:00→21:35)
[2016-07-12] MEDS: PANTOPRAZOLE SODIUM 40 MG VIAL IVP SCH (12:00)
[2016-07-12] MEDS: POTASSIUM PHOSPHATE INJ 30 MMOL in SODIUM CHLOR 0.9% 250 ML INJ 250 ML IV PRN ×2 (12:38→23:29)
[2016-07-12] MEDS: cloNIDine HCL 0.1 MG TAB PO PRN ×2 (12:53→21:24)
[2016-07-12] MEDS ORDERED: LABETALOL HCL 100 MG/20 ML VIAL IV PRN (16:30)
[2016-07-12] MEDS: ACETAMINOPHEN 1000 MG/100 ML VIAL IV PRN ×2 (16:45→23:58)
[2016-07-12] MEDS: fentaNYL DRIP 250 ML IV SCH (21:23)
[2016-07-12] MEDS: MAGNESIUM HYDROXIDE SUSP 30 ML CUP PO SCH (21:24)
[2016-07-12 21:41] LABS: MAGNESIUM 2.5 MG/DL (1.5-2.5)
[2016-07-12] MEDS: amLODIPine BESYLATE 5 MG TAB TUBE SCH (22:06)
[2016-07-12] MEDS: LABETALOL HCL 100 MG/20 ML VIAL IV PRN (22:28)
[2016-07-12] MEDS: hydrALAZINE HCL 20 MG/ML VIAL IV PRN (22:28)
[2016-07-12] MEDS: PROPOFOL 1000 MG/100 ML INJ 100 ML IV SCH ×2 (23:28→23:43)
[2016-07-13] VITALS (20 sets, daily range): BP systolic 128–180; BP diastolic 48–83; PULSE 79–110; RESP 25; TEMP 100.9–102.6; O2SAT 93–100
[2016-07-13] MEDS: METOPROLOL TARTRATE 5 MG/5 ML VIAL IV PUSH SCH ×5 (00:13→23:11)
[2016-07-13] MEDS: PIPERACIL-TAZO 4.5 GM PREMIX 100 ML IV SCH ×2 (00:13→07:45)
[2016-07-13] MEDS: RESP: ALBUTEROL 2.5 MG/IPRATROPIUM 0.5 MG NEB (SCH) NEB ×4 (03:26→22:38)
[2016-07-13] MEDS: CHLORHEXIDINE GLUCONATE 2 % 1 PACK (2 CLOTHS) TOP SCH (04:00)
[2016-07-13] MEDS: PROPOFOL 1000 MG/100 ML INJ 100 ML IV SCH ×2 (04:54→22:42)
[2016-07-13] MEDS: levETIRAcetam 1000 MG INJ 100 ML IV SCH ×2 (04:54→17:01)
[2016-07-13] MEDS: FOSPHENYTOIN SODIUM 100 MG PE/2 ML VIAL IV SCH ×3 (04:54→22:00)
[2016-07-13 05:06] LABS: AUTOMATED NEUTROPHIL # 16.5 TH/MM3 (1.8-7.7); BASOPHIL # 0.1 TH/MM3 (0-0.2); BASOPHIL % 0.4 % (0.0-2.0); EOSINOPHIL # 0.4 TH/MM3 (0-0.4); EOSINOPHIL % 1.9 % (0.0-4.0); HEMATOCRIT 26.9 % (39.0-51.0); LYMPH % 3.1 % (9.0-44.0); LYMPHOCYTE # 0.6 TH/MM3 (1.0-4.8); MEAN CELL VOLUME 90.8 FL (80.0-100.0); MEAN CORPUSCULAR HEMOGLOBIN 30.2 PG (27.0-34.0); MEAN CORPUSCULAR HGB CONC 33.3 % (32.0-36.0); MONO % 7.4 % (0.0-8.0); NEUT % 87.2 % (16.0-70.0); PLATELET COUNT 225 TH/MM3 (150-450); RED BLOOD COUNT 2.97 MIL/MM3 (4.50-5.90); RED CELL DISTRIBUTION WIDTH 14.7 % (11.6-17.2); WHITE BLOOD COUNT 18.9 TH/MM3 (4.0-11.0)
[2016-07-13 05:13] LABS: HEMO FLAGS AUTO DIFF
[2016-07-13 05:22] LABS: ALKALINE PHOSPHATASE 84 U/L (45-117); ALT (GPT) 34 U/L (12-78); ANION GAP 8 MEQ/L (5-15); AST (GOT) 69 U/L (15-37); BICARBONATE 24.6 MEQ/L (21.0-32.0); BLOOD UREA NITROGEN 23 MG/DL (7-18); CHLORIDE 127 MEQ/L (98-107); GLOMERULAR FILTRATION RATE 52 ML/MIN (>89); MAGNESIUM 2.5 MG/DL (1.5-2.5); POTASSIUM 3.3 MEQ/L (3.5-5.1); TOTAL BILIRUBIN ADULT 1.3 MG/DL (0.2-1.0)
--- NOTE | 2016-07-13 05:22 | RADRPT ---
EXAM DATE/TIME: 07/13/2016 04:45 [facility] COMPARISON: CHEST SINGLE AP, July 12, 2016, 4:36. INDICATIONS : Shortness of breath. MEDICAL HISTORY : None. SURGICAL HISTORY : None. ENCOUNTER: Subsequent ACUITY: 1 week PAIN SCORE: Non-responsive. LOCATION: Bilateral chest FINDINGS: ET tube, NG tube and right subclavian line are well placed. The heart size is normal. There is increa sed density in the mid and lower lungs bilaterally. There is silhouetting of the hemidiaphragms. CONCLUSION: Increased density in the mid and lower lungs likely related to edema or diffuse processes such as inf ection/inflammation. Some degree of effusions need to be suspected. Delroy Grimaldo MD on July 13, 2016 at 5:20 Board Certified Radiologist. This report was verified electronically.
[2016-07-13 05:32] LABS: SODIUM (NA) 160 MEQ/L (136-145)
[2016-07-13 05:39] LABS: BLOOD GAS BASE EXCESS -0.3 mmol/L (-2-2); BLOOD GAS CARBOXYHEMOGLOBIN 1.9 % (0-4); BLOOD GAS HCO3 23 mmol/L (22-26); BLOOD GAS METHEMOGLOBIN 1.2 % (0-2); BLOOD GAS O2 HGB SATURATION 96 % (90-100); BLOOD GAS OXYGEN CONTENT 13.1 Vol % (12.0-20.0); BLOOD GAS PCO2 34 mmHg (38-42); BLOOD GAS PO2 129 mmHg (61-120); BLOOD GAS TOTAL HGB 9.5 G/DL (12.0-16.0); CRITICAL VALUE NO; OXYGEN DEVICE VENTILATOR; TEMP CORR TO 98.6
[2016-07-13 05:41] LABS: DRAW SITE ART LINE; FIO2 75 %; STAT NO; VENT SETTINGS PRVC/AC
[2016-07-13] MEDS: ACETAMINOPHEN 325 MG TAB PO PRN ×2 (06:07→17:01)
[2016-07-13 07:32] LABS: BANDS 23 % (0-6); CORRECTED NUCLEATED RBC 1 /100 WBC (0-0); EOSINOPHILS 1 % (0-4); MYELOCYTES 2 % (0-0); NEUTROPHIL # MANUAL DIFF 16.3 TH/MM3 (1.8-7.7); POLYS (SEG NEUTROPHILS) 61 % (16-70); WBC DIFF SAMPLE 100
[2016-07-13 07:33] LABS: PLATELET ESTIMATE SMEAR NORMAL (NORMAL); PLATELET MORPHOLOGY NORMAL (NORMAL); SCAN/DIFF FINAL DIFF MANUAL
[2016-07-13 07:35] LABS: DOHLE BODIES PRESENT (NONE SEEN); TOXIC GRANULATION 1+ (NORMAL)
[2016-07-13 07:36] LABS: SPHEROCYTES OCC (NORMAL)
[2016-07-13] MEDS: VALPROATE IV SCH ×4 (07:45→20:25)
[2016-07-13] MEDS: NS IV SCH ×4 (07:45→20:25)
[2016-07-13] MEDS: CHLORHEXIDINE 0.12% (ORAL KIT) 15 ML CUP MT SCH ×2 (07:45→20:25)
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
[2016-07-13] MEDS: SODIUM CHLORIDE 0.9% FLUSH 5 ML FLUSH IV FLUSH SCH ×2 (08:21→20:26)
[2016-07-13] MEDS: LACTULOSE SYRUP 20 GM/30 ML CUP PO SCH (08:21)
[2016-07-13] MEDS: amLODIPine BESYLATE 5 MG TAB TUBE SCH (08:21)
[2016-07-13] MEDS: DOCUSATE SODIUM 100 MG/10 ML UDC PO SCH ×2 (08:21→20:26)
[2016-07-13] MEDS: SODIUM CHLOR 0.45% 1000 ML INJ 1,000 ML IV SCH (10:00)
[2016-07-13] MEDS: LABETALOL HCL 100 MG/20 ML VIAL IV PRN ×2 (11:15→22:18)
[2016-07-13] MEDS: OXACILLIN INJ 2 GM in SODIUM CHLORIDE 0.9% INJ 100 ML IV SCH ×4 (11:15→23:11)
--- NOTE | 2016-07-13 12:08 | HHI.PR ---
Neuropsych Progress Notes/Response to Tx Contents of Sessions: Level of Consciousness Time with Patient: 15 minutes Premorbid psychological status Premorbid Cognitive, Emotional and Behavioral Status: Tenuous. It is unclear this patient's educational, occupational or psychiatric histories. He was positive for THC on admit. Behavioral Reactions of Patient and Family/Support System: Unable to Assess. There are many individuals present in his hospital room, to such an extent that limitations on visitors are necessary. During my visits there were no decision makers or persons available to obtain a clear history. Emotional/Behavioral Status of Patient and Family/Support System: Unable to Assess. Pertinent issues, if appropriate to this patients clinical care, are described in detail above. Maximizing acute care outcome It is recommended that the patient be monitored for emergent behavioral impulsivity as the medical condition evolves. This patients neuropathological challenges may limit their rehabilitation potential going forward, and these challenges will require specialized therapeutic skills to maximize outcome. Anticipated Problems Ongoing areas of concern will include behavioral impulsivity, lack of insight and judgment, which is expected to improve with time and treatment. Presently , the patient is sedated and intubated. Treatment Plan This clinician will continue to follow with you throughout the course of this patients rehabilitation treatment, and I will be available to meet with the patients family/support system to facilitate their understanding and the ongoing care of their family member. The goals of neuropsychological intervention shall be both educational and supportive to the family/support system as is deemed clinically appropriate. [facility] Level: I:No response-total assistance Diagnosis: (1) Major neurocognitive disorder as late effect of traumatic brain injury with behavioral disturbance Status: Acute Progress Note Narrative Ongoing follow-up of patient both within context of daily trauma rounding and bedside. The patient remains unconscious, sedated and intubated. There was no family present. Patient remains at a [place] level I. I will continue to follow. Emil Dang PhD Jul 13, 2016 12:08 pm
[2016-07-13] MEDS: ACETAMINOPHEN 1000 MG/100 ML VIAL IV PRN ×2 (12:25→20:25)
[2016-07-13] MEDS: PANTOPRAZOLE SODIUM 40 MG VIAL IVP SCH (12:25)
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
[2016-07-13] MEDS: hydrALAZINE HCL 20 MG/ML VIAL IV PRN (18:09)
[2016-07-13] MEDS: cloNIDine HCL 0.1 MG TAB PO PRN (18:09)
[2016-07-13] MEDS: MAGNESIUM HYDROXIDE SUSP 30 ML CUP PO SCH (20:26)
[2016-07-13] MEDS: fentaNYL DRIP 250 ML IV SCH (22:42)
[2016-07-13] MEDS: MIDAZOLAM 100 MG/ML INJ 100 ML IV SCH (22:42)
[2016-07-14] VITALS (16 sets, daily range): BP systolic 117–198; BP diastolic 66–100; PULSE 92–113; RESP 25–45; TEMP 97.3–102.2; O2SAT 82–99
[2016-07-14] MEDS: hydrALAZINE HCL 20 MG/ML VIAL IV PRN ×2 (00:22→02:51)
[2016-07-14] MEDS: cloNIDine HCL 0.1 MG TAB PO PRN (00:51)
[2016-07-14] MEDS: niCARdipine INJ 25 MG in SODIUM CHLOR 0.9% 250 ML INJ 250 ML IV SCH ×2 (01:34→03:22)
[2016-07-14] MEDS: CHLORHEXIDINE GLUCONATE 2 % 1 PACK (2 CLOTHS) TOP SCH (02:08)
[2016-07-14] MEDS: LABETALOL HCL 100 MG/20 ML VIAL IV PRN (02:30)
[2016-07-14] MEDS: OXACILLIN INJ 2 GM in SODIUM CHLORIDE 0.9% INJ 100 ML IV SCH ×6 (02:50→21:14)
[2016-07-14] MEDS: RESP: ALBUTEROL 2.5 MG/IPRATROPIUM 0.5 MG NEB (SCH) NEB ×4 (04:38→20:10)
[2016-07-14] MEDS: PROPOFOL 1000 MG/100 ML INJ 100 ML IV SCH (04:39)
[2016-07-14 04:57] LABS: AUTOMATED NEUTROPHIL # 25.8 TH/MM3 (1.8-7.7); BASOPHIL # 0.2 TH/MM3 (0-0.2); BASOPHIL % 0.8 % (0.0-2.0); EOSINOPHIL # 0.2 TH/MM3 (0-0.4); EOSINOPHIL % 0.7 % (0.0-4.0); HEMATOCRIT 30.2 % (39.0-51.0); LYMPH % 2.8 % (9.0-44.0); LYMPHOCYTE # 0.8 TH/MM3 (1.0-4.8); MEAN CELL VOLUME 90.9 FL (80.0-100.0); MEAN CORPUSCULAR HEMOGLOBIN 29.7 PG (27.0-34.0); MEAN CORPUSCULAR HGB CONC 32.7 % (32.0-36.0); MONO % 7.9 % (0.0-8.0); NEUT % 87.8 % (16.0-70.0); PLATELET COUNT 274 TH/MM3 (150-450); RED BLOOD COUNT 3.32 MIL/MM3 (4.50-5.90); WHITE BLOOD COUNT 29.4 TH/MM3 (4.0-11.0)
[2016-07-14 04:59] LABS: HEMO FLAGS AUTO DIFF
[2016-07-14] MEDS: SODIUM CHLOR 0.45% 1000 ML INJ 1,000 ML IV SCH (05:12)
[2016-07-14] MEDS: levETIRAcetam 1000 MG INJ 100 ML IV SCH ×2 (05:12→17:11)
[2016-07-14] MEDS: METOPROLOL TARTRATE 5 MG/5 ML VIAL IV PUSH SCH (05:13)
[2016-07-14] MEDS: FOSPHENYTOIN SODIUM 100 MG PE/2 ML VIAL IV SCH ×3 (05:13→21:15)
[2016-07-14 05:39] LABS: ALKALINE PHOSPHATASE 110 U/L (45-117); ALT (GPT) 57 U/L (12-78); ANION GAP 7 MEQ/L (5-15); AST (GOT) 243 U/L (15-37); BICARBONATE 27.3 MEQ/L (21.0-32.0); BLOOD UREA NITROGEN 21 MG/DL (7-18); CHLORIDE 120 MEQ/L (98-107); GLOMERULAR FILTRATION RATE 83 ML/MIN (>89); POTASSIUM 3.6 MEQ/L (3.5-5.1); SODIUM (NA) 154 MEQ/L (136-145); TOTAL BILIRUBIN ADULT 0.9 MG/DL (0.2-1.0)
[2016-07-14 06:15] LABS: BANDS 31 % (0-6); BASOPHILS 1 % (0-2); DOHLE BODIES PRESENT (NONE SEEN); EOSINOPHILS 1 % (0-4); METAMYELOCYTES 4 % (0-1); MYELOCYTES 1 % (0-0); NEUTROPHIL # MANUAL DIFF 25.9 TH/MM3 (1.8-7.7); PLATELET ESTIMATE SMEAR NORMAL (NORMAL); PLATELET MORPHOLOGY NORMAL (NORMAL); POLYS (SEG NEUTROPHILS) 52 % (16-70); SCAN/DIFF FINAL DIFF MANUAL; TOXIC GRANULATION 1+ (NORMAL); WBC DIFF SAMPLE 100
--- NOTE | 2016-07-14 06:29 | RADRPT ---
EXAM DATE/TIME: 07/14/2016 05:05 [facility] COMPARISON: CHEST SINGLE AP, July 13, 2016, 4:45. INDICATIONS : Shortness of breath. MEDICAL HISTORY : None. SURGICAL HISTORY : None. ENCOUNTER: Subsequent ACUITY: 1 week PAIN SCORE: Non-responsive. LOCATION: Bilateral chest FINDINGS: ET tube, NG tube and right subclavian line are well placed. The heart size is normal. There is diffus e increased interstitial markings. There is further alveolar density at the bases bilaterally worse o n the left. CONCLUSION: Diffuse increase interstitial markings fibrosis and diffuse processes such as edema. There is superim posed consolidation or atelectasis at the bases. Some degree of effusion on the left side cannot be e xcluded. Delroy Grimaldo MD on July 14, 2016 at 6:27 Board Certified Radiologist. This report was verified electronically.
[2016-07-14 06:51] LABS: BLOOD GAS BASE EXCESS -1.1 mmol/L (-2-2); BLOOD GAS CARBOXYHEMOGLOBIN 1.4 % (0-4); BLOOD GAS HCO3 23 mmol/L (22-26); BLOOD GAS METHEMOGLOBIN 0.7 % (0-2); BLOOD GAS O2 HGB SATURATION 91 % (90-100); BLOOD GAS OXYGEN CONTENT 17.4 Vol % (12.0-20.0); BLOOD GAS PCO2 37 mmHg (38-42); BLOOD GAS PO2 68 mmHg (61-120); BLOOD GAS TOTAL HGB 13.7 G/DL (12.0-16.0); CRITICAL VALUE NO; FIO2 100 %; OXYGEN DEVICE VENTILATOR; TEMP CORR TO 98.6; VENT SETTINGS PRVC
[2016-07-14 06:52] LABS: DRAW SITE ART LINE; STAT YES
[2016-07-14] MEDS ORDERED: DEXTROSE 50% IN WATER 50 ML VIAL(D50) IV PUSH PRN (08:00)
[2016-07-14] MEDS ORDERED: GLUCAGON 1 MG/ML VIAL OTHER PRN (08:00)
[2016-07-14] MEDS ORDERED: FUROSEMIDE 40 MG/4 ML VIAL ONE (08:42)
[2016-07-14] MEDS: DOCUSATE SODIUM 100 MG/10 ML UDC PO SCH ×2 (08:45→21:00)
[2016-07-14] MEDS: LACTULOSE SYRUP 20 GM/30 ML CUP PO SCH (08:45)
[2016-07-14] MEDS: NS IV SCH ×4 (08:45→21:14)
[2016-07-14] MEDS: VALPROATE IV SCH ×4 (08:45→21:14)
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
[2016-07-14] MEDS: amLODIPine BESYLATE 5 MG TAB TUBE SCH (09:00)
[2016-07-14] MEDS ORDERED: FUROSEMIDE 40 MG/4 ML VIAL IV PUSH ONE (09:00)
--- NOTE | 2016-07-14 09:08 | PD.PROCEDR ---
Procedure Note Procedure DX: Traumatic Brain Injury OP: Insertion Left Subclavian Central Venous Line ([id number]) Procedure: Left chest prepped and draped. Left subclavian vein cannulated after 1% xylocaine infiltration under clavicle. Head laid flat for 30 seconds while subclavian vein cannulated.Wire advanced and head of bed elevated promptly to 30 degrees. Catheter passed over wire to 18 cm. Lumens aspirated and flushed. Dressing applied. CXR ordered, will review. Eamon Collins MD Jul 14, 2016 09:08
--- NOTE | 2016-07-14 09:50 | RADRPT ---
EXAM DATE/TIME: 07/14/2016 09:34 [facility] COMPARISON: CHEST SINGLE AP, July 14, 2016, 5:05. INDICATIONS : Left central line placement. MEDICAL HISTORY : None. SURGICAL HISTORY : None. ENCOUNTER: Initial ACUITY: 1 week PAIN SCORE: Non-responsive. LOCATION: Bilateral chest FINDINGS: Portable AP view of the chest demonstrates a normal-sized cardiac silhouette. Endotracheal tube tip i s at the aortic knob level, NG tube courses beyond the GE junction, right subclavian central line tip is in the SVC, and left subclavian central line tip is in the proximal SVC. No pneumothorax is visua lized. There is bibasilar airspace consolidation, stable from the prior study and there is a stable l eft pleural-based opacity. CONCLUSION: 1. Left subclavian central line distal tip is in the SVC. No pneumothorax is visualized. 2. Otherwise, stable examination with bibasilar airspace consolidation and small left pleural effusio n. Delroy Trimble MD on July 14, 2016 at 9:45 Board Certified Radiologist. This report was verified electronically.
[2016-07-14] MEDS ORDERED: fentaNYL CITRATE 250 MCG/5 ML AMP ONE (10:10)
[2016-07-14] MEDS ORDERED: MIDAZOLAM HCL 2 MG/2 ML VIAL ONE (10:10)
[2016-07-14] MEDS: ACETAMINOPHEN 325 MG TAB PO PRN (10:17)
[2016-07-14] MEDS: PROPRANOLOL HCL 20 MG TAB PO SCH ×3 (10:17→21:16)
[2016-07-14] MEDS: INSULIN NovoLIN REGULAR SUPPLEMENTAL SCALE SQ SCH ×3 (11:00→21:16)
[2016-07-14] MEDS ORDERED: REMOVE OLD PATCH T-DERMAL SCH (12:00)
[2016-07-14] MEDS ORDERED: METOPROLOL TARTRATE 5 MG/5 ML VIAL IV PUSH PRN (12:15)
[2016-07-14] MEDS: PANTOPRAZOLE SODIUM 40 MG VIAL IVP SCH (12:16)
--- NOTE | 2016-07-14 12:31 | HHI.PR ---
Neuropsych Progress Notes/Response to Tx Time with Patient: 15 minutes Premorbid psychological status Premorbid Cognitive, Emotional and Behavioral Status: Tenuous. It is unclear this patient's educational, occupational or psychiatric histories. He was positive for THC on admit. Behavioral Reactions of Patient and Family/Support System: Unable to Assess. There are many individuals present in his hospital room, to such an extent that limitations on visitors are necessary. During my visits there were no decision makers or persons available to obtain a clear history. Emotional/Behavioral Status of Patient and Family/Support System: Unable to Assess. Pertinent issues, if appropriate to this patients clinical care, are described in detail above. Maximizing acute care outcome It is recommended that the patient be monitored for emergent behavioral impulsivity as the medical condition evolves. This patients neuropathological challenges may limit their rehabilitation potential going forward, and these challenges will require specialized therapeutic skills to maximize outcome. Anticipated Problems Ongoing areas of concern will include behavioral impulsivity, lack of insight and judgment, which is expected to improve with time and treatment. Presently , the patient is sedated and intubated. Treatment Plan This clinician will continue to follow with you throughout the course of this patients rehabilitation treatment, and I will be available to meet with the patients family/support system to facilitate their understanding and the ongoing care of their family member. The goals of neuropsychological intervention shall be both educational and supportive to the family/support system as is deemed clinically appropriate. [facility] Level: I:No response-total assistance Diagnosis: (1) Major neurocognitive disorder as late effect of traumatic brain injury with behavioral disturbance Status: Acute Progress Note Narrative Ongoing follow-up of patient, who was seen in the context of daily trauma rounding and bedside. From a neurobehavioral perspective, there has been no change. He remains sedated and intubated. There was no family or support system present to discuss his progress. I will continue to follow with you. Emil Dang PhD Jul 14, 2016 12:31 pm
[2016-07-14 12:36] LABS: BICARBONATE 29.6 MEQ/L (21.0-32.0); POTASSIUM 4.6 MEQ/L (3.5-5.1)
[2016-07-14] MEDS ORDERED: MORPHINE SULFATE 4 MG/ML INJ ONE (13:15)
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
[2016-07-14] MEDS: ACETAMINOPHEN 1000 MG/100 ML VIAL IV PRN (17:11)
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
[2016-07-14] MEDS: MAGNESIUM HYDROXIDE SUSP 30 ML CUP PO SCH (21:00)
[2016-07-14] MEDS: SODIUM CHLORIDE 0.9% FLUSH 5 ML FLUSH IV FLUSH SCH (21:18)
[2016-07-14] MEDS: CHLORHEXIDINE 0.12% (ORAL KIT) 15 ML CUP MT SCH ×2 (21:18→21:21)
[2016-07-14] MEDS: MICAFUNGIN INJ 150 MG in SODIUM CHLORIDE 0.9% INJ 100 ML IV SCH (21:45)
[2016-07-14] MEDS ORDERED: PHARMACY ORDERED LAB XX ONE (22:45)
[2016-07-15] VITALS (21 sets, daily range): BP systolic 119–164; BP diastolic 53–90; PULSE 95–111; RESP 29–42; TEMP 100.5–101.9; O2SAT 96–100
[2016-07-15] MEDS: hydrALAZINE HCL 20 MG/ML VIAL IV PRN (00:25)
[2016-07-15] MEDS: OXACILLIN INJ 2 GM in SODIUM CHLORIDE 0.9% INJ 100 ML IV SCH ×6 (00:25→21:43)
[2016-07-15] MEDS: LABETALOL HCL 100 MG/20 ML VIAL IV PRN (01:00)
[2016-07-15] MEDS: ACETAMINOPHEN 1000 MG/100 ML VIAL IV PRN (02:49)
[2016-07-15] MEDS: RESP: ALBUTEROL 2.5 MG/IPRATROPIUM 0.5 MG NEB (SCH) NEB ×4 (03:59→20:58)
[2016-07-15] MEDS: CHLORHEXIDINE GLUCONATE 2 % 1 PACK (2 CLOTHS) TOP SCH (04:00)
[2016-07-15] MEDS: FOSPHENYTOIN SODIUM 100 MG PE/2 ML VIAL IV SCH ×3 (04:56→21:43)
[2016-07-15] MEDS: levETIRAcetam 1000 MG INJ 100 ML IV SCH ×2 (04:57→17:26)
[2016-07-15] MEDS: PROPRANOLOL HCL 20 MG TAB PO SCH ×3 (04:57→20:37)
[2016-07-15 04:58] LABS: BLOOD GAS BASE EXCESS 1.6 mmol/L (-2-2); BLOOD GAS CARBOXYHEMOGLOBIN 1.1 % (0-4); BLOOD GAS HCO3 26 mmol/L (22-26); BLOOD GAS METHEMOGLOBIN 0.8 % (0-2); BLOOD GAS O2 HGB SATURATION 97 % (90-100); BLOOD GAS PCO2 41 mmHg (38-42); BLOOD GAS PO2 183 mmHg (61-120); BLOOD GAS TOTAL HGB 9.9 G/DL (12.0-16.0); CRITICAL VALUE NO; TEMP CORR TO 98.6
[2016-07-15 04:59] LABS: DRAW SITE ALINE; FIO2 100 %; STAT NO
--- NOTE | 2016-07-15 05:10 | RADRPT ---
EXAM DATE/TIME: 07/15/2016 04:12 [facility] COMPARISON: CHEST SINGLE AP, July 14, 2016, 9:34. INDICATIONS : Shortness of breath. MEDICAL HISTORY : Non-responsive SURGICAL HISTORY : Non-responsive ENCOUNTER: Subsequent ACUITY: 1 week PAIN SCORE: Non-responsive. LOCATION: Bilateral chest FINDINGS: ET tube, NG tube, and left subclavian line are well placed. The heart size is normal. There is increa sed density at the mid and lower left lung. Minimal residual density seen at the right lower lung.. CONCLUSION: Bilateral areas of increased density being much more prominent on the left likely related to consolid ation/contusion or atelectasis. Delroy Grimaldo MD on July 15, 2016 at 5:07 Board Certified Radiologist. This report was verified electronically.
[2016-07-15 06:11] LABS: BASOPHIL # 0.4 TH/MM3 (0-0.2); BASOPHIL % 1.5 % (0.0-2.0); EOSINOPHIL # 0.1 TH/MM3 (0-0.4); EOSINOPHIL % 0.3 % (0.0-4.0); HEMATOCRIT 28.6 % (39.0-51.0); LYMPH % 3.9 % (9.0-44.0); LYMPHOCYTE # 1.2 TH/MM3 (1.0-4.8); MEAN CELL VOLUME 92.9 FL (80.0-100.0); MEAN CORPUSCULAR HEMOGLOBIN 30.1 PG (27.0-34.0); MEAN CORPUSCULAR HGB CONC 32.4 % (32.0-36.0); MONO % 7.7 % (0.0-8.0); NEUT % 86.6 % (16.0-70.0); PLATELET COUNT 260 TH/MM3 (150-450); RED BLOOD COUNT 3.08 MIL/MM3 (4.50-5.90); RED CELL DISTRIBUTION WIDTH 15.4 % (11.6-17.2)
[2016-07-15 06:25] LABS: HEMO FLAGS AUTO DIFF
[2016-07-15] MEDS: INSULIN NovoLIN REGULAR SUPPLEMENTAL SCALE SQ SCH ×2 (06:35→10:31)
[2016-07-15 06:45] LABS: MAGNESIUM 3.1 MG/DL (1.5-2.5)
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
[2016-07-15 07:48] LABS: BANDS 7 % (0-6); MYELOCYTES 4 % (0-0); NEUTROPHIL # MANUAL DIFF 27.3 TH/MM3 (1.8-7.7); POLYS (SEG NEUTROPHILS) 80 % (16-70); WBC DIFF SAMPLE 100
[2016-07-15 07:49] LABS: CORRECTED NUCLEATED RBC 1 /100 WBC (0-0); PLATELET ESTIMATE SMEAR NORMAL (NORMAL); PLATELET MORPHOLOGY NORMAL (NORMAL); SCAN/DIFF FINAL DIFF MANUAL
[2016-07-15] MEDS: CHLORHEXIDINE 0.12% (ORAL KIT) 15 ML CUP MT SCH ×2 (08:00→20:36)
[2016-07-15] MEDS: amLODIPine BESYLATE 5 MG TAB TUBE SCH (08:06)
[2016-07-15] MEDS: VALPROATE IV SCH ×4 (08:07→20:34)
[2016-07-15] MEDS: NS IV SCH ×4 (08:07→20:34)
[2016-07-15 08:18] LABS: INDIRECT BILIRUBIN 0.2 MG/DL (0.0-0.8); TOTAL BILIRUBIN ADULT 0.4 MG/DL (0.2-1.0)
[2016-07-15] MEDS: SODIUM CHLORIDE 0.9% FLUSH 5 ML FLUSH IV FLUSH SCH ×2 (09:00→20:33)
[2016-07-15] MEDS: DOCUSATE SODIUM 100 MG/10 ML UDC PO SCH ×2 (09:00→20:37)
[2016-07-15] MEDS: LACTULOSE SYRUP 20 GM/30 ML CUP PO SCH (09:00)
[2016-07-15 09:07] LABS: CKMB 2.2 NG/ML (0.5-3.6)
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
[2016-07-15 10:30] LABS: BICARBONATE 25.8 MEQ/L (21.0-32.0); POTASSIUM 4.5 MEQ/L (3.5-5.1)
[2016-07-15] MEDS: PANTOPRAZOLE SODIUM 40 MG VIAL IVP SCH (10:31)
[2016-07-15 10:35] LABS: LACTIC ACID,CSF 3.1 MMOL/L (0.0-3.0)
[2016-07-15] MEDS ORDERED: GLUCAGON 1 MG/ML VIAL OTHER PRN (11:00)
[2016-07-15] MEDS ORDERED: DEXTROSE 50% IN WATER 50 ML VIAL(D50) IV PUSH PRN (11:00)
[2016-07-15] MEDS ORDERED: EPINEPHrine HCL (1:10,000) 1 MG/10 ML SYRINGE ONE (11:07)
[2016-07-15] MEDS ORDERED: ATROPINE SULFATE 1 MG/10 ML SYRINGE ONE (11:07)
[2016-07-15] MEDS ORDERED: LIDOCAINE HCL 2% 100 MG/5 ML SYRINGE ONE (11:07)
--- NOTE | 2016-07-15 11:08 | PD.PROCEDR ---
Procedure Note Procedure DX: Fever, encephalopathy, leukocytosis. OP: Diagnostic Lumbar puncture Procedure: Patient identified, time out completed. Turned to left lateral decubitus position. Lumbar region prepped and draped. Spinal needle introduced in midline through the L4-5 interspace and red tinged, drew-aid fluid returned. Cleared to clear by second tube. Opening pressure 54 cm H2O. 16 mls removed and 4 tubes sent to lab for studies. Needle withdrawn and dressing applied. Eamon Collins MD Jul 15, 2016 11:07
[2016-07-15 11:37] LABS: SUPERNATE COLOR TUBE #1 CLEAR (CLEAR); VOLUME TUBE # 1 7.6 ML
[2016-07-15 11:38] LABS: GROSS BLOOD TUBE #1 4+ (0); VOLUME TUBE # 2 3.9 ML
[2016-07-15 11:39] LABS: GROSS BLOOD TUBE #3 1+ (0); SUPERNATE COLOR TUBE #3 CLEAR (CLEAR); SUPERNATE COLOR TUBE #4 CLEAR (CLEAR); VOLUME TUBE # 4 3.3 ML; WBC TUBE #2 34 /MM3 (0-10)
[2016-07-15 11:40] LABS: SUPERNATE COLOR TUBE #4 CLEAR (CLEAR); VOLUME TUBE # 4 3.3 ML
[2016-07-15 11:41] LABS: CSF LYMPHOCYTES 10 %; CSF LYMPHOCYTES 37 %; CSF MONOCYTES 5 %; CSF NEUTROPHILS 55 %; CSF NEUTROPHILS 85 %; WBC TUBE #4 6 /MM3 (0-10)
[2016-07-15 11:44] LABS: CSF MONOCYTES 6 %
[2016-07-15 11:55] LABS: GROSS BLOOD TUBE #2 1+ (0); GROSS BLOOD TUBE #4 TRACE (0); SUPERNATE COLOR TUBE #2 CLEAR (CLEAR)
[2016-07-15 11:56] LABS: GROSS BLOOD TUBE #4 TRACE (0)
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
[2016-07-15] MEDS: INSULIN DETEMIR 100 UNITS/ML VIAL SQ SCH ×2 (12:00→20:52)
[2016-07-15] MEDS: INSULIN ASPART SUPPLEMENTAL SCALE SQ SCH ×2 (12:00→17:26)
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
[2016-07-15] MEDS ORDERED: IOHEXOL 350 MG/ML 10 ML VIAL (for RAD DIAG) IV ONE (12:30)
[2016-07-15] MEDS: SODIUM BICARBONATE 8.4% INJ 100 MEQ in WATER STERILE FOR INJ 850 ML IV SCH ×2 (13:09→20:33)
--- NOTE | 2016-07-15 13:40 | HHI.PR ---
Neuropsych Progress Notes/Response to Tx Time with Patient: 15 minutes Premorbid psychological status Premorbid Cognitive, Emotional and Behavioral Status: Tenuous. It is unclear this patient's educational, occupational or psychiatric histories. He was positive for THC on admit. Behavioral Reactions of Patient and Family/Support System: Unable to Assess. There are many individuals present in his hospital room, to such an extent that limitations on visitors are necessary. During my visits there were no decision makers or persons available to obtain a clear history. Emotional/Behavioral Status of Patient and Family/Support System: Unable to Assess. Pertinent issues, if appropriate to this patients clinical care, are described in detail above. Maximizing acute care outcome It is recommended that the patient be monitored for emergent behavioral impulsivity as the medical condition evolves. This patients neuropathological challenges may limit their rehabilitation potential going forward, and these challenges will require specialized therapeutic skills to maximize outcome. Anticipated Problems Ongoing areas of concern will include behavioral impulsivity, lack of insight and judgment, which is expected to improve with time and treatment. Presently , the patient is sedated and intubated. Treatment Plan This clinician will continue to follow with you throughout the course of this patients rehabilitation treatment, and I will be available to meet with the patients family/support system to facilitate their understanding and the ongoing care of their family member. The goals of neuropsychological intervention shall be both educational and supportive to the family/support system as is deemed clinically appropriate. [facility] [place] Level: I:No response-total assistance Diagnosis: (1) Major neurocognitive disorder as late effect of traumatic brain injury with behavioral disturbance Status: Acute Progress Note Narrative Ongoing follow-up of patient within context of daily trauma rounding. There has been minimal change in this patient's neurobehavioral status compared to yesterday. I will continue to follow with you. Emil Dang PhD Jul 15, 2016 1:40 pm
[2016-07-15 14:30] LABS: BICARBONATE 31.7 MEQ/L (21.0-32.0); MAGNESIUM 3.1 MG/DL (1.5-2.5); POTASSIUM 4.5 MEQ/L (3.5-5.1)
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
[2016-07-15 15:54] LABS: BLOOD GAS CARBOXYHEMOGLOBIN 0.9 % (0-4); BLOOD GAS HCO3 27 mmol/L (22-26); BLOOD GAS METHEMOGLOBIN 0.9 % (0-2); BLOOD GAS O2 HGB SATURATION 94 % (90-100); BLOOD GAS OXYGEN CONTENT 14.6 Vol % (12.0-20.0); BLOOD GAS PCO2 50 mmHg (38-42); BLOOD GAS PO2 89 mmHg (61-120); TEMP CORR TO 98.6
[2016-07-15 15:55] LABS: CRITICAL VALUE NO; DRAW SITE ART LINE; FIO2 90 %; OXYGEN DEVICE VENTILATOR; STAT NO; VENT SETTINGS PRVC/AC
[2016-07-15 17:05] LABS: CSF NEUTROPHILS 91 %; GROSS BLOOD TUBE #1 4+ (0); WBC TUBE #1 34 /MM3 (0-10)
[2016-07-15 17:06] LABS: CSF LYMPHOCYTES 6 %
[2016-07-15 17:12] LABS: SUPERNATE COLOR TUBE #1 HEMOLYZED (CLEAR)
[2016-07-15] MEDS: PROPOFOL 1000 MG/100 ML INJ 100 ML IV SCH ×2 (17:26→20:33)
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
[2016-07-15] MEDS: MICAFUNGIN INJ 150 MG in SODIUM CHLORIDE 0.9% INJ 100 ML IV SCH (20:34)
[2016-07-15] MEDS: MAGNESIUM HYDROXIDE SUSP 30 ML CUP PO SCH (20:37)
[2016-07-16] VITALS (16 sets, daily range): BP systolic 134–164; BP diastolic 58–82; PULSE 90–111; RESP 28–35; TEMP 99.4–101.2; O2SAT 94–100
[2016-07-16] MEDS: ACETAMINOPHEN 1000 MG/100 ML VIAL IV PRN (00:24)
[2016-07-16] MEDS: INSULIN ASPART SUPPLEMENTAL SCALE SQ SCH ×4 (00:30→17:27)
[2016-07-16] MEDS: OXACILLIN INJ 2 GM in SODIUM CHLORIDE 0.9% INJ 100 ML IV SCH ×6 (01:03→22:52)
[2016-07-16] MEDS: PROPOFOL 1000 MG/100 ML INJ 100 ML IV SCH ×6 (01:04→22:57)
[2016-07-16] MEDS: RESP: ALBUTEROL 2.5 MG/IPRATROPIUM 0.5 MG NEB (SCH) NEB (02:42)
[2016-07-16] MEDS: CHLORHEXIDINE GLUCONATE 2 % 1 PACK (2 CLOTHS) TOP SCH (04:00)
[2016-07-16 04:56] LABS: AUTOMATED NEUTROPHIL # 31.4 TH/MM3 (1.8-7.7); BASOPHIL # 0.1 TH/MM3 (0-0.2); BASOPHIL % 0.2 % (0.0-2.0); EOSINOPHIL # 0.1 TH/MM3 (0-0.4); EOSINOPHIL % 0.4 % (0.0-4.0); HEMATOCRIT 24.7 % (39.0-51.0); LYMPH % 4.9 % (9.0-44.0); LYMPHOCYTE # 1.7 TH/MM3 (1.0-4.8); MEAN CORPUSCULAR HEMOGLOBIN 30.5 PG (27.0-34.0); MEAN CORPUSCULAR HGB CONC 33.2 % (32.0-36.0); MONO % 4.9 % (0.0-8.0); NEUT % 89.6 % (16.0-70.0); PLATELET COUNT 249 TH/MM3 (150-450); RED BLOOD COUNT 2.69 MIL/MM3 (4.50-5.90); RED CELL DISTRIBUTION WIDTH 15.2 % (11.6-17.2)
[2016-07-16] MEDS: LABETALOL HCL 100 MG/20 ML VIAL IV PRN (04:58)
[2016-07-16 04:59] LABS: HEMO FLAGS AUTO DIFF
[2016-07-16] MEDS: levETIRAcetam 1000 MG INJ 100 ML IV SCH ×2 (05:01→17:26)
[2016-07-16] MEDS: FOSPHENYTOIN SODIUM 100 MG PE/2 ML VIAL IV SCH ×3 (05:02→20:24)
[2016-07-16] MEDS: PROPRANOLOL HCL 20 MG TAB PO SCH ×3 (05:02→20:24)
[2016-07-16 05:13] LABS: BLOOD GAS BASE EXCESS 4.4 mmol/L (-2-2); BLOOD GAS CARBOXYHEMOGLOBIN 1.1 % (0-4); BLOOD GAS HCO3 28 mmol/L (22-26); BLOOD GAS METHEMOGLOBIN 0.7 % (0-2); BLOOD GAS O2 HGB SATURATION 97 % (90-100); BLOOD GAS OXYGEN CONTENT 11.4 Vol % (12.0-20.0); BLOOD GAS PCO2 42 mmHg (38-42); BLOOD GAS PO2 160 mmHg (61-120); BLOOD GAS TOTAL HGB 8.1 G/DL (12.0-16.0); CRITICAL VALUE NO; OXYGEN DEVICE VENTILATOR
[2016-07-16 05:15] LABS: VENT SETTINGS PRVC/AC
[2016-07-16 05:16] LABS: DRAW SITE ART LINE; FIO2 75 %; STAT NO
[2016-07-16 05:19] LABS: MAGNESIUM 2.8 MG/DL (1.5-2.5)
[2016-07-16 05:36] LABS: BICARBONATE 30.3 MEQ/L (21.0-32.0); CALCIUM-PROTEIN CORRECTED 8.2 MG/DL (8.5-10.1); MAGNESIUM 2.9 MG/DL (1.5-2.5); POTASSIUM 4.5 MEQ/L (3.5-5.1); TOTAL BILIRUBIN ADULT 0.3 MG/DL (0.2-1.0)
[2016-07-16 05:56] LABS: CKMB 1.5 NG/ML (0.5-3.6)
[2016-07-16] MEDS: SODIUM BICARBONATE 8.4% INJ 100 MEQ in WATER STERILE FOR INJ 850 ML IV SCH ×2 (06:02→15:46)
--- NOTE | 2016-07-16 06:24 | RADRPT ---
EXAM DATE/TIME: 07/16/2016 04:56 [place] COMPARISON: CHEST SINGLE AP, July 15, 2016, 4:12. INDICATIONS : Shortness of breath MEDICAL HISTORY : Non-responsive SURGICAL HISTORY : Non-responsive ENCOUNTER: Subsequent ACUITY: 1 week PAIN SCORE: Non-responsive. LOCATION: Bilateral chest FINDINGS: ET tube, NG tube and left subclavian line are well placed. The heart size is normal. This are is incr eased density at the mid and lower left chest. The right lung is clear. CONCLUSION: Left lower lung consolidation or atelectasis. Delroy Grimaldo MD on July 16, 2016 at 6:22 Board Certified Radiologist. This report was verified electronically.
[2016-07-16] MEDS: CEFEPIME INJ 2,000 MG in SODIUM CHLORIDE 0.9% INJ 100 ML IV SCH ×3 (06:30→22:07)
[2016-07-16] MEDS ORDERED: CEFEPIME INJ 2,000 MG in SODIUM CHLORIDE 0.9% INJ 100 ML IV SCH (06:30)
[2016-07-16 07:06] LABS: BANDS 51 % (0-6); CORRECTED NUCLEATED RBC 4 /100 WBC (0-0); MYELOCYTES 3 % (0-0); NEUTROPHIL # MANUAL DIFF 29.8 TH/MM3 (1.8-7.7); PLASMA CELLS 1 % (0-0); POLYS (SEG NEUTROPHILS) 31 % (16-70); WBC DIFF SAMPLE 100
[2016-07-16 07:08] LABS: PLATELET ESTIMATE SMEAR NORMAL (NORMAL); PLATELET MORPHOLOGY NORMAL (NORMAL); SCAN/DIFF FINAL DIFF MANUAL
[2016-07-16 07:09] LABS: DOHLE BODIES PRESENT (NONE SEEN)
[2016-07-16] MEDS ORDERED: ALTEPLASE RECOMBINANT 2 MG VIAL INTRACATH ONE (08:00)
[2016-07-16] MEDS: INSULIN DETEMIR 100 UNITS/ML VIAL SQ SCH ×2 (08:35→20:23)
[2016-07-16] MEDS: DOCUSATE SODIUM 100 MG/10 ML UDC PO SCH ×2 (08:35→20:23)
[2016-07-16] MEDS: LACTULOSE SYRUP 20 GM/30 ML CUP PO SCH (08:35)
[2016-07-16] MEDS: amLODIPine BESYLATE 5 MG TAB TUBE SCH (08:35)
[2016-07-16] MEDS: CHLORHEXIDINE 0.12% (ORAL KIT) 15 ML CUP MT SCH ×2 (08:36→20:22)
[2016-07-16] MEDS: SODIUM CHLORIDE 0.9% FLUSH 5 ML FLUSH IV FLUSH SCH ×2 (08:36→20:23)
[2016-07-16] MEDS: NS IV SCH ×4 (09:07→20:22)
[2016-07-16] MEDS: VALPROATE IV SCH ×4 (09:07→20:22)
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
[2016-07-16] MEDS: RESP: ALBUTEROL 2.5 MG/IPRATROPIUM 0.5 MG NEB (PRN) INH (10:11)
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
[2016-07-16 11:27] LABS: CKMB 1.1 NG/ML (0.5-3.6)
[2016-07-16] MEDS: METOPROLOL TARTRATE 5 MG/5 ML VIAL IV PUSH SCH ×2 (12:00→17:27)
[2016-07-16] MEDS: PANTOPRAZOLE SODIUM 40 MG VIAL IVP SCH (12:00)
--- NOTE | 2016-07-16 12:04 | HHI.PR ---
Neuropsych Progress Notes/Response to Tx Time with Patient: 15 minutes Premorbid psychological status Premorbid Cognitive, Emotional and Behavioral Status: Tenuous. It is unclear this patient's educational, occupational or psychiatric histories. He was positive for THC on admit. Behavioral Reactions of Patient and Family/Support System: Unable to Assess. There are many individuals present in his hospital room, to such an extent that limitations on visitors are necessary. During my visits there were no decision makers or persons available to obtain a clear history. Emotional/Behavioral Status of Patient and Family/Support System: Unable to Assess. Pertinent issues, if appropriate to this patients clinical care, are described in detail above. Maximizing acute care outcome It is recommended that the patient be monitored for emergent behavioral impulsivity as the medical condition evolves. This patients neuropathological challenges may limit their rehabilitation potential going forward, and these challenges will require specialized therapeutic skills to maximize outcome. Anticipated Problems Ongoing areas of concern will include behavioral impulsivity, lack of insight and judgment, which is expected to improve with time and treatment. Presently , the patient is sedated and intubated. Treatment Plan This clinician will continue to follow with you throughout the course of this patients rehabilitation treatment, and I will be available to meet with the patients family/support system to facilitate their understanding and the ongoing care of their family member. The goals of neuropsychological intervention shall be both educational and supportive to the family/support system as is deemed clinically appropriate. [facility] Level: I:No response-total assistance Diagnosis: (1) Major neurocognitive disorder as late effect of traumatic brain injury with behavioral disturbance Status: Acute Progress Note Narrative Ongoing follow-up. Neurobehaviorally no change. Medical investigations into why no improvement in neurocognitive state. I will continue to follow. Emil Dang PhD Jul 16, 2016 12:04 pm
[2016-07-16] MEDS: SODIUM PHOSPHATE INJ 30 MMOL in SODIUM CHLOR 0.9% 250 ML INJ 240 ML IV PRN (13:30)
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
--- NOTE | 2016-07-16 15:20 | MG ---
cc: BREEZY DIXON M.D. Lab No: [id number] Date: Age: 26 Sex: M Race: ROOM: 1312. Intubated on Diprivan at 50 mcg then turned off 5 minutes into EEG. Hyperventilation was not done, only photic stimulation. With a ventriculostomy, therefore unresponsive. No withdrawal to four extremities. 07/09 EEG consistent with severe encephalopathic state. He is a trauma alert. Right temporal head wound. Keppra, Depakote Cerebyx medications. The patient has hiccups from the initial part of the recording. Overall background is still slow between 1-2 Hz delta frequency. No evidence of any epileptic activity, even with the Diprivan turned off. He may have 3 Hz activity at that time. Photic stimulation shows no driving response. IMPRESSION: Abnormal EEG due to moderately severe background slowing consistent with encephalopathic process without epileptiform features. Clinical correlation. MD BIRDIE Bates/SONJA /2:54 PM /3:13 PM
[2016-07-16 16:10] LABS: BLOOD GAS BASE EXCESS 5.1 mmol/L (-2-2); BLOOD GAS CARBOXYHEMOGLOBIN 1.1 % (0-4); BLOOD GAS HCO3 29 mmol/L (22-26); BLOOD GAS METHEMOGLOBIN 0.6 % (0-2); BLOOD GAS O2 HGB SATURATION 93 % (90-100); BLOOD GAS PCO2 45 mmHg (38-42); BLOOD GAS PO2 76 mmHg (61-120); BLOOD GAS TOTAL HGB 9.9 G/DL (12.0-16.0); CRITICAL VALUE NO; OXYGEN DEVICE VENTILATOR; TEMP CORR TO 98.6
[2016-07-16 16:11] LABS: VENT SETTINGS 600/20/+10/0.90
[2016-07-16 16:12] LABS: DRAW SITE ART LINE; FIO2 100 %; STAT NO
--- NOTE | 2016-07-16 17:37 | HHI.PR ---
Review/Management Diagnosis TBI sz---stable on cerebyx, vpa, keppra. levels are therapeutic. Diagnosis/Plan: Daily Summary heavy sedation still needed no seizure today eeg diffuse slowing, repeat pending will monitor 07/16 vpa 57, dph 12 (07/11) no apparent seizures and eeg also shows no epileptiform features ct brain seen, improved remains deeply comatose will check levels again and follow peripherally Subjective Subjective Comments No acute events reported No seizures noted by staff Active Medications Current Medications Medications (Trade) Dose Ordered Sig/Romy Route Start Time Stop Time Status Last Admin (Tylenol) 650 mg Q6H PRN PO 07/07/16 11:15 07/14/16 10:17 (Zofran Inj) 4 mg Q6H PRN IV 07/07/16 11:15 (Milk Of Magnesia Liq) 30 ml HS PO 07/07/16 21:00 07/13/16 20:26 Miscellaneous Information 1 Q361D XX 07/07/16 11:15 07/07/16 11:15 (Chlorhexidine 2% Cloth) Taper DAILY@04 TOP 07/08/16 04:00 07/04/17 03:59 07/12/16 04:11 (Chlorhexidine 2% Cloth) 3 pack UNSCH PRN TOP 07/07/16 11:15 (K-Phos) 2,000 mg UNSCH PRN PO/TUBE 07/07/16 11:15 07/13/16 06:08 (NS Flush) 2 ml UNSCH PRN IV FLUSH 07/07/16 11:45 (NS Flush) 2 ml BID IV FLUSH 07/07/16 21:00 07/16/16 08:36 (Protonix Inj) 40 mg Q24H IVP 07/07/16 12:00 07/16/16 12:00 Chlorhexidine Gluconate 15 ml 15 ml BID@08,20 MT 07/07/16 20:00 07/16/16 08:36 (Diprivan 1000 Mg/100ml Inj) 100 ml @ 0 mls/hr TITRATE IV 07/07/16 13:45 07/16/16 17:28 Hydralazine HCl 10 mg 10 mg Q1H PRN IV 07/07/16 14:00 07/15/16 00:25 Fentanyl Citrate 250 ml @ 0 mls/hr TITRATE IV 07/07/16 17:30 07/13/16 22:42 (Versed Inj) 100 ml @ 0 mls/hr TITRATE IV 07/07/16 17:30 07/13/16 22:42 Fentanyl Citrate 100 mcg 100 mcg Q1H PRN IV PUSH 07/07/16 17:30 07/16/16 05:04 Levetriacetam 100 ml @ 400 mls/hr Q12H IV 07/07/16 18:00 07/16/16 17:26 Potassium Chloride 100 ml @ 50 mls/hr Q2H PRN IV 07/07/16 17:30 07/12/16 23:29 (KCl 20 Meq Premix Inj) 100 ml @ 50 mls/hr Q2H PRN IV 07/07/16 17:30 Potassium Chloride 40 meq 40 meq UNSCH PRN PO/TUBE 07/07/16 17:30 07/13/16 06:07 Potassium Chloride 100 ml @ 25 mls/hr UNSCH PRN IV 07/07/16 17:30 Potassium Chloride 100 ml @ 50 mls/hr Q2H PRN IV 07/07/16 17:30 (Magnesium Sulfate Inj/NS Inj) 100 ml @ 50 mls/hr UNSCH PRN IV 07/07/16 17:30 Magnesium Oxide 800 mg 800 mg UNSCH PRN PO 07/07/16 17:30 (Magnesium Sulfate Inj/NS Inj) 100 ml @ 50 mls/hr UNSCH PRN IV 07/07/16 17:30 Potassium Phosphate 2000 mg 2,000 mg Q4H PRN PO 07/07/16 17:30 (Sodium Phosphate Inj/NS 250 ml Inj) 250 ml @ 42 mls/hr UNSCH PRN IV 07/07/16 17:30 07/16/16 13:30 (KCl 40 Meq/30 ml Liq) 40 meq UNSCH PRN PO/TUBE 07/07/16 17:30 Potassium Phosphate 2000 mg 2,000 mg UNSCH PRN PO/TUBE 07/07/16 17:30 (Potassium Phosphate Inj/NS 250 ml Inj) 260 ml @ 42 mls/hr UNSCH PRN IV 07/07/16 17:30 07/12/16 23:29 (Colace Liq) 100 mg Q12HR PO 07/08/16 11:00 07/16/16 08:35 (Cerebyx Inj) 100 mgpe Q8HR IV 07/08/16 22:00 07/16/16 14:00 Lorazepam 1 mg 1 mg Q15M PRN IV PUSH 07/08/16 17:15 (Depacon Inj/NS Inj) 105 ml @ 105 mls/hr Q12H IV 07/09/16 08:00 07/16/16 09:07 (Lactulose Liq) 30 ml DAILY PO 07/09/16 17:30 07/16/16 08:35 (Tylenol Supp) [address] 07/10/16 14:00 (Ofirmev Inj) 1,000 mg Q8HR PRN IV 07/10/16 14:00 07/16/16 00:24 (Catapres) 0.1 mg Q6H PRN PO 07/11/16 12:45 07/14/16 00:51 Amlodipine Besylate 5 mg 5 mg DAILY TUBE 07/12/16 21:45 07/16/16 08:35 Oxacillin Sodium 2 gm/Sodium Chloride 100 ml @ 200 mls/hr Q4H IV 07/13/16 10:00 07/16/16 14:00 (Cardene Inj/NS 250 ml Inj) 260 ml @ 0 mls/hr TITRATE IV 07/14/16 01:30 07/14/16 03:22 Propranolol HCl 20 mg 20 mg Q8HR PO 07/14/16 09:45 07/16/16 14:00 (Mycamine Inj/NS Inj) 100 ml @ 100 mls/hr Q24H IV 07/14/16 21:00 07/15/16 20:34 (Levemir Inj) 5 units Q12HR SQ 07/15/16 12:00 07/16/16 08:35 (D50w (Vial) Inj) 25 ml UNSCH PRN IV PUSH 07/15/16 11:00 (Glucagon Inj) 1 mg UNSCH PRN OTHER 07/15/16 11:00 Insulin Aspart 1 1 Q6H SQ 07/15/16 12:00 07/16/16 17:27 Sodium Bicarbonate 100 meq/Sterile Water 950 ml @ 100 mls/hr Q9H30M IV 07/15/16 12:00 07/16/16 15:46 (Maxipime Inj/NS Inj) 100 ml @ 200 mls/hr Q8HR IV 07/16/16 06:30 07/16/16 14:00 (Lopressor Inj) 5 mg Q6HR IV PUSH 07/16/16 12:00 07/16/16 17:27 (Thorazine) 50 mg Q8HR PRN PO 07/16/16 09:45 Allergies Allergies Coded Allergies No Known Allergies (Verified06/23/15) Review of Systems All other ROS: Unable to obtain Exam I&O / VS 07/15/16 07/15/16 07/16/16 15:00 23:00 07:00 Intake Total 3489 ml 2140 ml Output Total 2521 ml 1009 ml Balance 968 ml 1131 ml IV Total 2347 ml 1622 ml Tube Feeding 822 ml 398 ml Other 320 ml 120 ml Output Urine Total 2300 ml 925 ml Stool Total 125 ml 0 ml Drainage Total 96 ml 84 ml # Bowel Movements 2 Vital Signs Date Time Temp Pulse Resp B/P Pulse Ox O2 Delivery O2 Flow Rate FiO2 07/16/16 16:00 100 07/16/16 16:00 91 07/16/16 14:15 98 75 07/16/16 14:00 102 07/16/16 12:00 75 07/16/16 12:00 90 07/16/16 10:15 100 75 07/16/16 08:00 75 07/16/16 08:00 92 07/16/16 06:00 95 07/16/16 04:00 75 07/16/16 04:00 111 07/16/16 04:00 101.0 111 28 144/65 100 07/16/16 03:37 100 75 07/16/16 02:00 107 07/16/16 00:45 100 75 07/16/16 00:00 102 07/16/16 00:00 101.2 102 35 134/58 100 07/16/16 00:00 75 07/15/16 22:00 106 07/15/16 21:40 75 07/15/16 20:57 100 75 07/15/16 20:00 100.5 104 36 158/86 100 07/15/16 20:00 104 07/15/16 20:00 90 07/15/16 18:00 101 Musculoskeletal: ROM (Grossly within functional limits) Objective Radiology Results Last 48 hours Impressions Chest X-Ray 07/16/16 0600 Signed Impressions: Service Date/Time: June 04:56 - CONCLUSION: Left lower lung consolidation or atelectasis. Delroy Grimaldo MD Chest X-Ray 07/15/16 0600 Signed Impressions: Service Date/Time: Friday, July 15, 2016 04:12 - CONCLUSION: Bilateral areas of increased density being much more prominent on the left likely related to consolidation/contusion or atelectasis. Delroy Grimaldo MD Head CT 07/15/16 0000 Signed Impressions: Service Date/Time: Friday, July 15, 2016 11:41 - CONCLUSION: Intracranially negative.. Mehul Tomas MD Chest CT 07/15/16 0000 Signed Impressions: Service Date/Time: Friday, July 15, 2016 11:48 - CONCLUSION: Consolidated left lower lobe with air bronchograms consistent with infiltrate small associated pleural effusion. Additionally there is dispersed soft groundglass infiltrate in both lung mtz. These are most likely on the basis of infectious inflammatory process and are new relative to prior CT scan of the chest 07 July 2016. Mehul Tomas MD Abdomen/Pelvis CT 07/15/16 0000 Signed Impressions: Service Date/Time: Friday, July 15, 2016 11:48 - CONCLUSION: Small amount of free fluid in the pelvis. Otherwise negative. Mehul Tomas MD Micro and Labs Laboratory Tests Test 07/15/16 07/16/16 07/16/16 07/16/16 20:46 04:36 05:00 09:10 Sodium Level 154 154 Serum Osmolality 338 340 Total Creatine Kinase 21813 08455 12189 Creatine Kinase MB 2.0 1.5 1.1 Creatine Kinase MB % 0.0 0.0 0.0 White Blood Count 35.0 Red Blood Count 2.69 Hemoglobin 8.2 Hematocrit 24.7 Mean Corpuscular Volume 92.0 Mean Corpuscular Hemoglobin 30.5 Mean Corpuscular Hemoglobin 33.2 Concent Red Cell Distribution Width 15.2 Platelet Count 249 Mean Platelet Volume 9.5 Neutrophils (%) (Auto) 89.6 Lymphocytes (%) (Auto) 4.9 Monocytes (%) (Auto) 4.9 Eosinophils (%) (Auto) 0.4 Basophils (%) (Auto) 0.2 Neutrophils # (Auto) 31.4 Lymphocytes # (Auto) 1.7 Monocytes # (Auto) 1.7 Eosinophils # (Auto) 0.1 Basophils # (Auto) 0.1 CBC Comment AUTO DIFF Differential Total Cells 100 Counted Neutrophils % (Manual) 31 Band Neutrophils % 51 Lymphocytes % 7 Monocytes % 7 Neutrophils # (Manual) 29.8 Myelocytes 3 Nucleated Red Blood Cells 4 Differential Comment FINAL DIFF MANUAL Plasma Cells 1 Dohle Bodies PRESENT Platelet Estimate NORMAL Platelet Morphology Comment NORMAL Potassium Level 4.5 Chloride Level 117 Carbon Dioxide Level 30.3 Anion Gap 7 Blood Urea Nitrogen 28 Creatinine 1.05 Estimat Glomerular Filtration 105 Rate Random Glucose 317 Calcium Level 7.1 Protein Corrected Calcium 8.2 Phosphorus Level 1.9 Magnesium Level 2.9 Total Bilirubin 0.3 Aspartate Amino Transf 514 (AST/SGOT) Alanine Aminotransferase 147 (ALT/SGPT) Alkaline Phosphatase 128 Total Protein 5.1 Albumin 1.6 Blood Gas Puncture Site ART LINE Blood Gas Patient Temperature 101.0 Blood Gas HCO3 28 Blood Gas Base Excess 4.4 Blood Gas Oxygen Saturation 97 Arterial Blood pH 7.45 Arterial Blood Partial 42 Pressure CO2 Arterial Blood Partial 160 Pressure O2 Arterial Blood Oxygen Content 11.4 Arterial Blood 1.1 Carboxyhemoglobin Arterial Blood Methemoglobin 0.7 Blood Gas Hemoglobin 8.1 Oxygen Delivery Device VENTILATOR Blood Gas Ventilator Setting PRVC/AC Blood Gas Inspired Oxygen 75 Test 07/16/16 07/16/16 13:00 15:49 Sodium Level 150 Serum Osmolality 334 Blood Gas Puncture Site ART LINE Blood Gas Patient Temperature 98.6 Blood Gas HCO3 29 Blood Gas Base Excess 5.1 Blood Gas Oxygen Saturation 93 Arterial Blood pH 7.43 Arterial Blood Partial 45 Pressure CO2 Arterial Blood Partial 76 Pressure O2 Arterial Blood Oxygen Content 13.0 Arterial Blood 1.1 Carboxyhemoglobin Arterial Blood Methemoglobin 0.6 Blood Gas Hemoglobin 9.9 Oxygen Delivery Device VENTILATOR Blood Gas Ventilator Setting 600/20/+10/0.90 Blood Gas Inspired Oxygen 100 Date/Time Procedure Status Source Growth 07/15/16 15:12 Gram Stain - Final Resulted Cerebral Spinal Fluid Shunt Fluid 07/15/16 15:12 CSF Culture - Preliminary Resulted Cerebral Spinal Fluid Shunt Fluid NO GROWTH IN 24 HOURS. 07/15/16 09:40 Fungal Smear - Final Resulted Cerebral Spinal Fluid Lumbar Puncture NO FUNGAL ELEMENTS SEEN. 07/15/16 09:40 Fungal Culture Resulted Cerebral Spinal Fluid Lumbar Puncture Pending 07/15/16 07:54 Urine Culture - Preliminary Resulted Urine Catheterized Urine NO GROWTH IN 24 HOURS. 07/14/16 21:11 Aerobic Blood Culture - Preliminary Resulted Blood Peripheral NO GROWTH IN 2 DAYS 07/14/16 21:11 Anaerobic Blood Culture - Preliminary Resulted Blood Peripheral NO GROWTH IN 2 DAYS Marky Arshad MD Jul 16, 2016 17:37
[2016-07-16] MEDS: MAGNESIUM HYDROXIDE SUSP 30 ML CUP PO SCH (20:23)
[2016-07-16 21:16] LABS: CREATINE KINASE GREATER THAN 14000 U/L (39-308)
[2016-07-16 21:43] LABS: CKMB 1.9 NG/ML (0.5-3.6)
[2016-07-16] MEDS: MICAFUNGIN INJ 150 MG in SODIUM CHLORIDE 0.9% INJ 100 ML IV SCH (23:28)
[2016-07-17] VITALS (18 sets, daily range): BP systolic 134–157; BP diastolic 49–72; PULSE 80–110; RESP 25–36; TEMP 98.8–102; O2SAT 93–100
[2016-07-17] MEDS: INSULIN ASPART SUPPLEMENTAL SCALE SQ SCH ×5 (00:12→23:52)
[2016-07-17] MEDS: METOPROLOL TARTRATE 5 MG/5 ML VIAL IV PUSH SCH ×5 (00:12→23:48)
[2016-07-17] MEDS: SODIUM BICARBONATE 8.4% INJ 100 MEQ in WATER STERILE FOR INJ 850 ML IV SCH ×3 (00:22→20:39)
[2016-07-17] MEDS: PROPOFOL 1000 MG/100 ML INJ 100 ML IV SCH ×5 (01:55→12:41)
[2016-07-17] MEDS: OXACILLIN INJ 2 GM in SODIUM CHLORIDE 0.9% INJ 100 ML IV SCH ×6 (01:57→23:04)
[2016-07-17] MEDS: CHLORHEXIDINE GLUCONATE 2 % 1 PACK (2 CLOTHS) TOP SCH (01:57)
[2016-07-17] MEDS: hydrALAZINE HCL 20 MG/ML VIAL IV PRN (02:05)
[2016-07-17 02:16] LABS: MAGNESIUM 2.7 MG/DL (1.5-2.5)
[2016-07-17 02:28] LABS: CKMB 1.9 NG/ML (0.5-3.6)
[2016-07-17] MEDS: SODIUM PHOSPHATE INJ 30 MMOL in SODIUM CHLOR 0.9% 250 ML INJ 240 ML IV PRN (03:53)
--- NOTE | 2016-07-17 04:14 | RADRPT ---
EXAM DATE/TIME: 07/17/2016 03:25 [place] COMPARISON: CHEST SINGLE AP, July 16, 2016, 4:56. INDICATIONS : Shortness of breath. MEDICAL HISTORY : None. SURGICAL HISTORY : None. ENCOUNTER: Subsequent ACUITY: 1 week PAIN SCORE: Non-responsive. LOCATION: chest FINDINGS: Endotracheal tube tip at the inferior margin of the clavicles. EKG leads overlie the chest. NG tube c ourses beneath the diaphragm. There is patchy airspace disease in both lower lobes. This is progresse d on the right side. CONCLUSION: Worsening airspace disease identified. Vikas Jara MD on July 17, 2016 at 4:12 Board Certified Radiologist. This report was verified electronically.
[2016-07-17 04:39] LABS: BLOOD GAS BASE EXCESS 6.9 mmol/L (-2-2); BLOOD GAS CARBOXYHEMOGLOBIN 1.4 % (0-4); BLOOD GAS HCO3 31 mmol/L (22-26); BLOOD GAS METHEMOGLOBIN 0.7 % (0-2); BLOOD GAS O2 HGB SATURATION 88 % (90-100); BLOOD GAS OXYGEN CONTENT 10.3 Vol % (12.0-20.0); BLOOD GAS PCO2 42 mmHg (38-42); BLOOD GAS PO2 61 mmHg (61-120); BLOOD GAS TOTAL HGB 8.2 G/DL (12.0-16.0); CRITICAL VALUE YES; OXYGEN DEVICE VENTILATOR; TEMP CORR TO 98.6
[2016-07-17 04:40] LABS: FIO2 80 %
[2016-07-17 04:41] LABS: DRAW SITE ART LINE; VENT SETTINGS PRVC/AC
[2016-07-17 04:42] LABS: STAT NO
[2016-07-17] MEDS: FOSPHENYTOIN SODIUM 100 MG PE/2 ML VIAL IV SCH ×3 (05:08→23:42)
[2016-07-17] MEDS: levETIRAcetam 1000 MG INJ 100 ML IV SCH ×2 (05:49→18:24)
[2016-07-17 06:09] LABS: AUTOMATED NEUTROPHIL # 32.1 TH/MM3 (1.8-7.7); BASOPHIL # 0.3 TH/MM3 (0-0.2); BASOPHIL % 0.8 % (0.0-2.0); EOSINOPHIL # 0.1 TH/MM3 (0-0.4); EOSINOPHIL % 0.4 % (0.0-4.0); HEMATOCRIT 24.3 % (39.0-51.0); LYMPH % 4.5 % (9.0-44.0); LYMPHOCYTE # 1.6 TH/MM3 (1.0-4.8); MEAN CELL VOLUME 92.5 FL (80.0-100.0); MEAN CORPUSCULAR HEMOGLOBIN 30.4 PG (27.0-34.0); MEAN CORPUSCULAR HGB CONC 32.9 % (32.0-36.0); NEUT % 91.3 % (16.0-70.0); PLATELET COUNT 240 TH/MM3 (150-450); RED BLOOD COUNT 2.63 MIL/MM3 (4.50-5.90); RED CELL DISTRIBUTION WIDTH 14.7 % (11.6-17.2); WHITE BLOOD COUNT 35.2 TH/MM3 (4.0-11.0)
[2016-07-17 06:15] LABS: HEMO FLAGS AUTO DIFF
[2016-07-17] MEDS: CEFEPIME INJ 2,000 MG in SODIUM CHLORIDE 0.9% INJ 100 ML IV SCH ×3 (06:35→23:43)
[2016-07-17] MEDS: PROPRANOLOL HCL 20 MG TAB PO SCH ×4 (06:36→21:00)
[2016-07-17 07:11] LABS: BICARBONATE 32.1 MEQ/L (21.0-32.0); CALCIUM-PROTEIN CORRECTED 7.7 MG/DL (8.5-10.1); MAGNESIUM 2.7 MG/DL (1.5-2.5); POTASSIUM 3.9 MEQ/L (3.5-5.1); TOTAL BILIRUBIN ADULT 0.3 MG/DL (0.2-1.0)
[2016-07-17] MEDS: CHLORHEXIDINE 0.12% (ORAL KIT) 15 ML CUP MT SCH ×2 (08:00→20:39)
[2016-07-17 08:02] LABS: BANDS 33 % (0-6); BASOPHILS 1 % (0-2); CORRECTED NUCLEATED RBC 3 /100 WBC (0-0); EOSINOPHILS 4 % (0-4); METAMYELOCYTES 2 % (0-1); MYELOCYTES 4 % (0-0); NEUTROPHIL # MANUAL DIFF 29.9 TH/MM3 (1.8-7.7); POLYS (SEG NEUTROPHILS) 46 % (16-70); WBC DIFF SAMPLE 100
[2016-07-17 08:03] LABS: PLATELET ESTIMATE SMEAR NORMAL (NORMAL); PLATELET MORPHOLOGY NORMAL (NORMAL); TOXIC VACUOLATION PRESENT (NONE SEEN)
[2016-07-17 08:04] LABS: SCAN/DIFF FINAL DIFF MANUAL
[2016-07-17] MEDS: amLODIPine BESYLATE 5 MG TAB TUBE SCH (08:36)
[2016-07-17] MEDS: LACTULOSE SYRUP 20 GM/30 ML CUP PO SCH (08:36)
[2016-07-17] MEDS: DOCUSATE SODIUM 100 MG/10 ML UDC PO SCH ×2 (08:36→20:39)
[2016-07-17] MEDS: NS IV SCH ×4 (08:37→21:54)
[2016-07-17] MEDS: INSULIN DETEMIR 100 UNITS/ML VIAL SQ SCH ×2 (08:37→20:40)
[2016-07-17] MEDS: VALPROATE IV SCH ×4 (08:37→21:54)
[2016-07-17] MEDS: SODIUM CHLORIDE 0.9% FLUSH 5 ML FLUSH IV FLUSH SCH ×2 (08:37→20:39)
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
--- NOTE | 2016-07-17 10:37 | HHI.PR ---
Neuropsych Progress Notes/Response to Tx Contents of Sessions: Level of Consciousness Time with Patient: 15 minutes Premorbid psychological status Premorbid Cognitive, Emotional and Behavioral Status: Tenuous. It is unclear this patient's educational, occupational or psychiatric histories. He was positive for THC on admit. Behavioral Reactions of Patient and Family/Support System: Unable to Assess. There are many individuals present in his hospital room, to such an extent that limitations on visitors are necessary. During my visits there were no decision makers or persons available to obtain a clear history. Emotional/Behavioral Status of Patient and Family/Support System: Unable to Assess. Pertinent issues, if appropriate to this patients clinical care, are described in detail above. Maximizing acute care outcome It is recommended that the patient be monitored for emergent behavioral impulsivity as the medical condition evolves. This patients neuropathological challenges may limit their rehabilitation potential going forward, and these challenges will require specialized therapeutic skills to maximize outcome. Anticipated Problems Ongoing areas of concern will include behavioral impulsivity, lack of insight and judgment, which is expected to improve with time and treatment. Presently , the patient is sedated and intubated. Treatment Plan This clinician will continue to follow with you throughout the course of this patients rehabilitation treatment, and I will be available to meet with the patients family/support system to facilitate their understanding and the ongoing care of their family member. The goals of neuropsychological intervention shall be both educational and supportive to the family/support system as is deemed clinically appropriate. [facility] Level: I:No response-total assistance Diagnosis: (1) Major neurocognitive disorder as late effect of traumatic brain injury with behavioral disturbance Status: Acute Progress Note Narrative Ongoing follow-up with patient, who was seen bedside. Brief discussion with the patient's cousin, who was bedside. From a neurobehavioral perspective, there appears no change in functioning compared to yesterday. I will continue to follow with you. Emil Dang PhD Jul 17, 2016 10:37 am
[2016-07-17] MEDS: PANTOPRAZOLE SODIUM 40 MG VIAL IVP SCH (12:00)
[2016-07-17] MEDS ORDERED: NOREPINEPHRINE 4 MG/4 ML AMP ONE ×2 (13:27→15:40)
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
[2016-07-17] MEDS: VASOPRESSIN INJ 40 UNITS in DEXTROSE 5% IN WATER 100ML INJ 98 ML IV SCH ×2 (14:21)
[2016-07-17] MEDS ORDERED: NOREPINEPHRINE-DEXTROSE DRIP 250 ML IV SCH (14:30)
[2016-07-17] MEDS ORDERED: TERBUTALINE INJ 1 MG/ML AMP SQ PRN (14:30)
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
[2016-07-17] MEDS ORDERED: Vancomycin Consult Pharmacy 1 EA OTHER SCH (15:00)
[2016-07-17] MEDS: fentaNYL DRIP 250 ML IV SCH (16:32)
[2016-07-17 16:37] LABS: BLOOD GAS BASE EXCESS 2.2 mmol/L (-2-2); BLOOD GAS CARBOXYHEMOGLOBIN 0.7 % (0-4); BLOOD GAS HCO3 29 mmol/L (22-26); BLOOD GAS O2 HGB SATURATION 87 % (90-100); BLOOD GAS OXYGEN CONTENT 12.5 Vol % (12.0-20.0); BLOOD GAS PCO2 74 mmHg (38-42); BLOOD GAS PO2 73 mmHg (61-120); BLOOD GAS TOTAL HGB 10.2 G/DL (12.0-16.0); TEMP CORR TO 98.6
[2016-07-17 16:38] LABS: CRITICAL VALUE YES; OXYGEN DEVICE VENTILATOR
[2016-07-17 16:39] LABS: FIO2 100 %; VENT SETTINGS APRV
[2016-07-17 16:40] LABS: DRAW SITE ART LINE; STAT NO
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
[2016-07-17] MEDS: VANCOMYCIN 1,500 MG/NS 500 ML IV SCH ×2 (17:00)
[2016-07-17 17:25] LABS: BICARBONATE 33.3 MEQ/L (21.0-32.0); MAGNESIUM 2.9 MG/DL (1.5-2.5); POTASSIUM 4.5 MEQ/L (3.5-5.1)
[2016-07-17] MEDS: ACETAMINOPHEN 1000 MG/100 ML VIAL IV PRN (17:52)
[2016-07-17] MEDS ORDERED: NOREPINEPHRINE IV SCH (18:00)
[2016-07-17] MEDS ORDERED: SODIUM CHLORID 0.9% IV SCH (18:00)
[2016-07-17 18:04] LABS: CALCIUM-PROTEIN CORRECTED 7.9 MG/DL (8.5-10.1)
[2016-07-17 18:35] LABS: CKMB 2.3 NG/ML (0.5-3.6)
[2016-07-17 18:47] LABS: LACTIC ACID GHOST NOT REPORTABLE
[2016-07-17] MEDS: MAGNESIUM HYDROXIDE SUSP 30 ML CUP PO SCH (20:39)
[2016-07-17] MEDS: MICAFUNGIN INJ 150 MG in SODIUM CHLORIDE 0.9% INJ 100 ML IV SCH (20:39)
[2016-07-17] MEDS ORDERED: SODIUM CHLOR 0.9% 1000 ML INJ 1,999 ML IV ONE (23:30)
[2016-07-18] VITALS (16 sets, daily range): BP systolic 124–168; BP diastolic 52–72; PULSE 83–103; RESP 30–43; TEMP 98.4–100.6; O2SAT 79–100
[2016-07-18] MEDS: MICAFUNGIN INJ 150 MG in SODIUM CHLORIDE 0.9% INJ 100 ML IV SCH (00:19)
[2016-07-18 00:58] LABS: BLOOD GAS BASE EXCESS 2.6 mmol/L (-2-2); BLOOD GAS CARBOXYHEMOGLOBIN 1.2 % (0-4); BLOOD GAS HCO3 29 mmol/L (22-26); BLOOD GAS O2 HGB SATURATION 96 % (90-100); BLOOD GAS OXYGEN CONTENT 8.6 Vol % (12.0-20.0); BLOOD GAS PCO2 62 mmHg (38-42); BLOOD GAS PO2 136 mmHg (61-120); BLOOD GAS TOTAL HGB 6.1 G/DL (12.0-16.0); TEMP CORR TO 98.6
[2016-07-18 00:59] LABS: CRITICAL VALUE YES; OXYGEN DEVICE VENTILATOR
[2016-07-18] MEDS ORDERED: SODIUM CHLORIDE 0.9% IV ONE (01:00)
[2016-07-18] MEDS ORDERED: LORazepam 2 MG/ML VIAL IV PUSH ONE (01:00)
[2016-07-18] MEDS ORDERED: THIAMINE IV ONE (01:00)
[2016-07-18] MEDS ORDERED: FOLIC ACID IV ONE (01:00)
[2016-07-18] MEDS ORDERED: FOLIC ACID 1 MG/0.2 ML INJ IM ONE (01:00)
[2016-07-18 01:01] LABS: DRAW SITE ART LINE; FIO2 100 %; STAT YES; VENT SETTINGS APRV
[2016-07-18 01:45] LABS: HEMATOCRIT 19.5 % (39.0-51.0); REVIEW FLAG FINAL
[2016-07-18] MEDS: OXACILLIN INJ 2 GM in SODIUM CHLORIDE 0.9% INJ 100 ML IV SCH ×4 (02:00→13:40)
[2016-07-18] MEDS ORDERED: ATROPINE SULFATE 1 MG/10 ML SYRINGE ONE (02:02)
[2016-07-18] MEDS ORDERED: EPINEPHrine HCL (1:10,000) 1 MG/10 ML SYRINGE ONE ×2 (02:02→02:10)
[2016-07-18] MEDS ORDERED: LIDOCAINE HCL 2% 100 MG/5 ML SYRINGE ONE (02:02)
--- NOTE | 2016-07-18 02:51 | RADRPT ---
EXAM DATE/TIME: 07/18/2016 02:28 [facility] COMPARISON: CT BRAIN W/O CONTRAST, July 15, 2016, 11:41. INDICATIONS : Decrease in hemoglobin, evaluate bleed. RADIATION DOSE: 55.87 CTDIvol (mGy) MEDICAL HISTORY : Non-responsive. SURGICAL HISTORY : Non-responsive. ENCOUNTER: Subsequent ACUITY: 1 day PAIN SCALE: Non-responsive LOCATION: cranial TECHNIQUE: Multiple contiguous axial images were obtained of the head. Using automated exposure control and adj ustment of the mA and/or kV according to patient size, radiation dose was kept as low as reasonably a chievable to obtain optimal diagnostic quality images. FINDINGS: Right frontal approach ventriculostomy catheter with tip terminating at the midline right frontal hor n. There is effacement of the right lateral ventricle and third ventricle identified. There is a smal l hypodense subdural collection along the left frontal convexity with transverse with a 5.1 mm. The t here are no fractures appear and mucosal thickening within the paranasal sinuses. Bilateral mastoid a ir cell opacification and middle ear opacification noted. CONCLUSION: 1. Small hypodense subdural collection along the left frontal convexity with ventricular effacement n oted as above. Vikas Jara MD on July 18, 2016 at 2:45 Board Certified Radiologist. This report was verified electronically.
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
--- NOTE | 2016-07-18 02:56 | RADRPT ---
EXAM DATE/TIME: 07/18/2016 02:32 [facility] COMPARISON: CT THORAX W/O CONTRAST, July 18, 2016, 2:32. CT THORAX W CONTRAST, July 15, 2016, 11:48. CT ABDOMEN & PELVIS W CONTRAST, July 15, 2016, 11:48. INDICATIONS : Decrease in hemoglobin. Evaluate for bleeding. ORAL CONTRAST: No oral contrast ingested. RADIATION DOSE: 20.53 CTDIvol (mGy) ; Combined studies - Thorax/Abdomen/Pelvis MEDICAL HISTORY : Non-responsive. SURGICAL HISTORY : Non-responsive. ENCOUNTER: Subsequent ACUITY: 1 day PAIN SCALE: Non-responsive LOCATION: abdomen TECHNIQUE: Volumetric scanning of the abdomen and pelvis was performed. Using automated exposure control and ad justment of the mA and/or kV according to patient size, radiation dose was kept as low as reasonably achievable to obtain optimal diagnostic quality images. FINDINGS: There are bilateral pleural effusions and body wall edema. Dense consolidation in the lower lobes is present. Unenhanced appearance of the liver, spleen, pancreas, adrenal glands, bilateral kidneys are unremarkable. There is a small amount of free fluid in the pelvis. No evidence of bowel obstruction. Patel catheter within the urinary bladder and a rectal tube is noted. There are no large hematomas. O sseous structures are intact. NG tube coiled in the stomach. CONCLUSION: Pulmonary findings as above, body wall edema and small amount of free fluid in the pelvis without alisha dence for hematoma. Vikas Jara MD on July 18, 2016 at 2:53 Board Certified Radiologist. This report was verified electronically.
[2016-07-18 03:24] LABS: CKMB 3.2 NG/ML (0.5-3.6)
[2016-07-18 03:24] LABS: BLOOD GAS BASE EXCESS 1.9 mmol/L (-2-2); BLOOD GAS CARBOXYHEMOGLOBIN 1.3 % (0-4); BLOOD GAS HCO3 28 mmol/L (22-26); BLOOD GAS METHEMOGLOBIN 0.9 % (0-2); BLOOD GAS O2 HGB SATURATION 82 % (90-100); BLOOD GAS PCO2 65 mmHg (38-42); BLOOD GAS PO2 60 mmHg (61-120); CRITICAL VALUE YES; OXYGEN DEVICE VENTILATOR; TEMP CORR TO 98.6; VENT SETTINGS APRV
[2016-07-18 03:25] LABS: DRAW SITE ART LINE; FIO2 100 %; STAT YES
[2016-07-18 03:25] LABS: APTT (PATIENT) 28.9 SEC (24.3-30.1); PROTHROMBIN TIME - PATIENT 10.7 SEC (9.8-11.6)
[2016-07-18] MEDS: CHLORHEXIDINE GLUCONATE 2 % 1 PACK (2 CLOTHS) TOP SCH (04:00)
[2016-07-18] MEDS: INSULIN ASPART SUPPLEMENTAL SCALE SQ SCH ×2 (05:03→12:00)
[2016-07-18] MEDS: METOPROLOL TARTRATE 5 MG/5 ML VIAL IV PUSH SCH ×2 (05:06→12:00)
[2016-07-18] MEDS: SODIUM BICARBONATE 8.4% INJ 100 MEQ in WATER STERILE FOR INJ 850 ML IV SCH (05:06)
[2016-07-18] MEDS: PROPRANOLOL HCL 20 MG TAB PO SCH (05:06)
[2016-07-18] MEDS: FOSPHENYTOIN SODIUM 100 MG PE/2 ML VIAL IV SCH ×2 (05:07→13:50)
[2016-07-18] MEDS: levETIRAcetam 1000 MG INJ 100 ML IV SCH (05:07)
[2016-07-18 05:10] LABS: BLOOD GAS BASE EXCESS 2.9 mmol/L (-2-2); BLOOD GAS CARBOXYHEMOGLOBIN 1.3 % (0-4); BLOOD GAS HCO3 29 mmol/L (22-26); BLOOD GAS METHEMOGLOBIN 0.9 % (0-2); BLOOD GAS O2 HGB SATURATION 88 % (90-100); BLOOD GAS OXYGEN CONTENT 10.1 Vol % (12.0-20.0); BLOOD GAS PCO2 58 mmHg (38-42); BLOOD GAS PO2 65 mmHg (61-120); TEMP CORR TO 98.6
[2016-07-18 05:11] LABS: CRITICAL VALUE YES; OXYGEN DEVICE VENTILATOR
[2016-07-18 05:12] LABS: DRAW SITE ART LINE; FIO2 100 %; STAT NO; VENT SETTINGS PC/AC
[2016-07-18 05:19] LABS: BASOPHIL # 0.3 TH/MM3 (0-0.2); BASOPHIL % 1.1 % (0.0-2.0); EOSINOPHIL # 0.1 TH/MM3 (0-0.4); EOSINOPHIL % 0.4 % (0.0-4.0); HEMATOCRIT 23.5 % (39.0-51.0); LYMPH % 5.6 % (9.0-44.0); LYMPHOCYTE # 1.6 TH/MM3 (1.0-4.8); MEAN CELL VOLUME 91.2 FL (80.0-100.0); MEAN CORPUSCULAR HEMOGLOBIN 30.4 PG (27.0-34.0); MEAN CORPUSCULAR HGB CONC 33.3 % (32.0-36.0); MONO % 2.9 % (0.0-8.0); PLATELET COUNT 184 TH/MM3 (150-450); RED BLOOD COUNT 2.58 MIL/MM3 (4.50-5.90); WHITE BLOOD COUNT 28.9 TH/MM3 (4.0-11.0)
[2016-07-18] MEDS: CEFEPIME INJ 2,000 MG in SODIUM CHLORIDE 0.9% INJ 100 ML IV SCH (05:52)
[2016-07-18 05:57] LABS: HEMO FLAGS AUTO DIFF
[2016-07-18 06:04] LABS: BICARBONATE 30.4 MEQ/L (21.0-32.0); MAGNESIUM 2.9 MG/DL (1.5-2.5); TOTAL BILIRUBIN ADULT 0.3 MG/DL (0.2-1.0)
[2016-07-18 06:13] LABS: POTASSIUM 5.5 MEQ/L (3.5-5.1)
[2016-07-18 06:16] LABS: CALCIUM-PROTEIN CORRECTED 6.5 MG/DL (8.5-10.1)
[2016-07-18] MEDS: VANCOMYCIN 1,500 MG/NS 500 ML IV SCH ×2 (06:25)
[2016-07-18] MEDS: VASOPRESSIN INJ 40 UNITS in DEXTROSE 5% IN WATER 100ML INJ 98 ML IV SCH ×2 (06:31)
[2016-07-18] MEDS ORDERED: CALCIUM CHLORIDE 10% SOLN 1 GRAM/10 ML SYR IV ONE (06:45)
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
[2016-07-18] MEDS: CHLORHEXIDINE 0.12% (ORAL KIT) 15 ML CUP MT SCH (08:00)
[2016-07-18] MEDS: LACTULOSE SYRUP 20 GM/30 ML CUP PO SCH (09:00)
[2016-07-18] MEDS ORDERED: SODIUM BICARBONATE 8.4% INJ 150 MEQ in WATER STERILE FOR INJ 850 ML IV SCH (09:00)
[2016-07-18] MEDS: DOCUSATE SODIUM 100 MG/10 ML UDC PO SCH (09:00)
[2016-07-18] MEDS ORDERED: SODIUM BICARBONATE 8.4% INJ 50 MEQ/50 ML SYR ONE (09:29)
[2016-07-18] MEDS ORDERED: SODIUM BICARBONATE 8.4% INJ 50 ML ONE (09:29)
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
[2016-07-18] MEDS: fentaNYL DRIP 250 ML IV SCH (09:51)
[2016-07-18] MEDS: VALPROATE IV SCH ×2 (09:51)
[2016-07-18] MEDS: NS IV SCH ×2 (09:51)
[2016-07-18] MEDS: SODIUM CHLORIDE 0.9% FLUSH 5 ML FLUSH IV FLUSH SCH (09:52)
[2016-07-18] MEDS: INSULIN DETEMIR 100 UNITS/ML VIAL SQ SCH (09:52)
[2016-07-18] MEDS: amLODIPine BESYLATE 5 MG TAB TUBE SCH (09:53)
[2016-07-18] MEDS ORDERED: INSULIN DETEMIR 100 UNITS/ML VIAL SQ SCH (10:00)
[2016-07-18] MEDS ORDERED: CALCIUM CHLORIDE INJ 2 GM in SODIUM CHLORIDE 0.9% INJ 100 ML IV ONE (10:00)
[2016-07-18] MEDS ORDERED: SODIUM BICARBONATE 8.4% INJ 50 MEQ/50 ML SYR IV PUSH ONE (10:00)
[2016-07-18] MEDS ORDERED: SODIUM POLYSTYRENE SULFONATE SUSP 15 GM/60 ML CUP PO ONE (10:00)
[2016-07-18 10:10] LABS: BLOOD GAS BASE EXCESS 6.1 mmol/L (-2-2); BLOOD GAS CARBOXYHEMOGLOBIN 1.4 % (0-4); BLOOD GAS HCO3 31 mmol/L (22-26); BLOOD GAS METHEMOGLOBIN 1.3 % (0-2); BLOOD GAS O2 HGB SATURATION 87 % (90-100); BLOOD GAS OXYGEN CONTENT 9.2 Vol % (12.0-20.0); BLOOD GAS PCO2 55 mmHg (38-42); BLOOD GAS PO2 59 mmHg (61-120); BLOOD GAS TOTAL HGB 7.5 G/DL (12.0-16.0); TEMP CORR TO 98.6
[2016-07-18 10:11] LABS: CRITICAL VALUE YES; OXYGEN DEVICE VENTILATOR
[2016-07-18 10:13] LABS: DRAW SITE ART LINE; FIO2 100 %; STAT YES; VENT SETTINGS PRVC/AC
[2016-07-18] MEDS ORDERED: SODIUM CHLOR 0.9% 1000 ML INJ 1,000 ML IV ONE (10:15)
[2016-07-18 10:22] LABS: BANDS 26 % (0-6); CORRECTED NUCLEATED RBC 3 /100 WBC (0-0); NEUTROPHIL # MANUAL DIFF 26.9 TH/MM3 (1.8-7.7); PLATELET ESTIMATE SMEAR NORMAL (NORMAL); PLATELET MORPHOLOGY NORMAL (NORMAL); POLYS (SEG NEUTROPHILS) 67 % (16-70); SCAN/DIFF FINAL DIFF MANUAL; TOXIC GRANULATION 1+ (NORMAL); WBC DIFF SAMPLE 100
[2016-07-18 10:24] LABS: OVALOCYTES 1+ (NORMAL)
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
[2016-07-18] MEDS ORDERED: CISATRACURIUM INJ 100 MG in SODIUM CHLOR 0.9% 250 ML INJ 240 ML IV SCH (12:00)
[2016-07-18] MEDS ORDERED: LINEZOLID 600 MG PREMIX 300 ML IV SCH (12:00)
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
[2016-07-18] MEDS: PANTOPRAZOLE SODIUM 40 MG VIAL IVP SCH (13:42)
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
[2016-07-18] MEDS ORDERED: BUMETANIDE INJ 100 ML IV SCH (15:30)
[2016-07-18 16:28] LABS: BACTERIA, URINE OCC /hpf; BLOOD, URINE LARGE (NEG); GLUCOSE,URINE 70 mg/dL (NEG); KETONE, URINE NEG (NEG); MUCUS URINE FEW /lpf (OCC); NITRITE,URINE NEG (NEG); SQUAMOUS EPITHELIAL CELL URINE 7 /hpf (0-5)
[2016-07-18 16:29] LABS: COMMENT (UR) CATH-CULTURE IND; CULTURE IF INDICATED CATH CULTURE IND; URINE COLOR RED (YELLW/STRAW)
[2016-07-18 16:38] LABS: BICARBONATE 32.2 MEQ/L (21.0-32.0); POTASSIUM 5.3 MEQ/L (3.5-5.1)
[2016-07-18 17:14] LABS: CALCIUM-PROTEIN CORRECTED 8.1 MG/DL (8.5-10.1)
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
[2016-07-18] MEDS ORDERED: CEFEPIME INJ 2,000 MG in SODIUM CHLORIDE 0.9% INJ 100 ML IV SCH (18:00)
[2016-07-18] MEDS ORDERED: EPINEPHrine HCL (1:1000) 30 MG/30 ML VIAL IV ONE (20:46)
[2016-07-18] MEDS ORDERED: SODIUM BICARBONATE 8.4% INJ 50 MEQ/50 ML SYR IV ONE (20:46)
[2016-07-18] MEDS ORDERED: EPINEPHrine HCL (1:10,000) 1 MG/10 ML SYRINGE IV ONE (20:46)
[2016-07-19 00:13] LABS: BLOOD GAS BASE EXCESS -5.5 mmol/L (-2-2); BLOOD GAS CARBOXYHEMOGLOBIN 0.6 % (0-4); BLOOD GAS HCO3 23 mmol/L (22-26); BLOOD GAS METHEMOGLOBIN 0.7 % (0-2); BLOOD GAS O2 HGB SATURATION 63 % (90-100); BLOOD GAS OXYGEN CONTENT 6.5 Vol % (12.0-20.0); BLOOD GAS PCO2 77 mmHg (38-42); BLOOD GAS PO2 49 mmHg (61-120); BLOOD GAS TOTAL HGB 7.2 G/DL (12.0-16.0); TEMP CORR TO 98.6
[2016-07-19 00:14] LABS: CRITICAL VALUE YES; OXYGEN DEVICE VENTILATOR
[2016-07-19 00:15] LABS: DRAW SITE ALINE; FIO2 100 %; STAT YES; VENT SETTINGS PC/AC/30/P42/+20/0.7
[2016-07-19] MEDS ORDERED: PHARMACY ORDERED LAB XX ONE (04:45)
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
== END 2016-07-18 20:47 | disposition expired | DRG 25 ==
LOC: NEPI 08:43 → EDBD 09:24 → UNDOADMIN 09:24 → N03A 09:24 → MERGE 09:24 → NEDA 09:24 → N03A 10:02
PROVIDERS: ADMIT Surgery; ATTEND Surgery
PROC: 5A1955Z Respiratory Ventilation, Greater than 96 Consecutive Hours (ICD-10-PCS; 2016-07-07)
PROC: 0HQ0XZZ Repair Scalp Skin, External Approach (ICD-10-PCS; 2016-07-07)
PROC: 4A103BD Monitoring of Intracranial Pressure, Percutaneous Approach (ICD-10-PCS; 2016-07-07)
PROC: 0BH17EZ Insertion of Endotracheal Airway into Trachea, Via Natural or Artificial Opening (ICD-10-PCS; 2016-07-07)
PROC: 03HY32Z Insertion of Monitoring Device into Upper Artery, Percutaneous Approach (ICD-10-PCS; 2016-07-09)
PROC: 05H633Z Insertion of Infusion Device into Left Subclavian Vein, Percutaneous Approach (ICD-10-PCS; 2016-07-14)
PROC: 009630Z Drainage of Cerebral Ventricle with Drainage Device, Percutaneous Approach (ICD-10-PCS; principal; 2016-07-15)
PROC: 009U3ZX Drainage of Spinal Canal, Percutaneous Approach, Diagnostic (ICD-10-PCS; 2016-07-15)
PROC: 30233N1 Transfusion of Nonautologous Red Blood Cells into Peripheral Vein, Percutaneous Approach (ICD-10-PCS; 2016-07-18)
DX: S06.5X9A Traumatic subdural hemorrhage with loss of consciousness of unspecified duration, initial encounter (principal); J96.00 Acute respiratory failure, unspecified whether with hypoxia or hypercapnia; N17.0 Acute kidney failure with tubular necrosis; R65.21 Severe sepsis with septic shock; A41.9 Sepsis, unspecified organism; S12.601A Unspecified nondisplaced fracture of seventh cervical vertebra, initial encounter for closed fracture; G93.41 Metabolic encephalopathy; J15.0 Pneumonia due to Klebsiella pneumoniae; J15.211 Pneumonia due to Methicillin susceptible Staphylococcus aureus; J15.6 Pneumonia due to other Gram-negative bacteria; G40.89 Other seizures; M62.82 Rhabdomyolysis; J95.851 Ventilator associated pneumonia; E87.2 Acidosis; S06.319A Contusion and laceration of right cerebrum with loss of consciousness of unspecified duration, initial encounter; S01.01XA Laceration without foreign body of scalp, initial encounter; D64.9 Anemia, unspecified; S06.1X9A Traumatic cerebral edema with loss of consciousness of unspecified duration, initial encounter; S02.19XA Other fracture of base of skull, initial encounter for closed fracture; E83.51 Hypocalcemia; E87.5 Hyperkalemia; Y95 Nosocomial condition; V43.52XA Car driver injured in collision with other type car in traffic accident, initial encounter; Y92.410 Unspecified street and highway as the place of occurrence of the external cause
CPT/HCPCS: 31500; 36430; 36556; 36600; 61210; 70450; 70496; 70498; 71010; 71250; 71260; 72125; 72170; 74176; 74177; 80048; 80053; 80076; 80164; 80185; 80307; 80320; 81001; 82435; 82550; 82552; 82565; 82570; 82805; 82945; 82947; 82948; 83010; 83605; 83690; 83735; 83874; 83930; 83935; 84100; 84132; 84145; 84155; 84157; 84295; 84300; 84443; 84484; 84520; 85007; 85014; 85018; 85025; 85027; 85384; 85610; 85730; 86403; 86850; 86880; 86900; 86901; 86920; 87040; 87070; 87077; 87086; 87102; 87147; 87186; 87205; 87206; 87641; 89051; 92950; 93005; 94002; 94003; 94640; 94664; 94770; 95819; 96374; 99291; C9113; G0390; J0131; J0171; J0360; J0461; J0692; J1815; J1940; J1953; J2020; J2060; J2150; J2248; J2250; J2270; J2543; J2700; J2997; J3010; J3370; J3475; J3480; J7030; J7040; J7050; L0150; L0172; P9016; P9045; Q2009; Q9967